=== PATIENT | female | born 1955 | race American Indian/Alaskan Native ===

== ENCOUNTER 2016-04-12 06:19 | Inpatient (IN) | payer BC ==
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
[2016-04-12 07:25] LABS: Basophils % (Auto) 0.4 % (0.0-1.8); Eosinophils % (Auto) 1.1 % (0.0-4.3); Hematocrit 41.1 % (30.3-42.9); Hemoglobin 13.8 gm/dl (10.1-14.3); Mean Corpuscular HGB Conc 34 % (30-34); Mean Corpuscular Hemoglobin 30 pg (28-32); Mean Corpuscular Volume 89 fl (79-97); Platelet Count 208 K/mm3 (140-440); Red Blood Count 4.61 M/mm3 (3.65-5.03); Red Cell Distribution Width 14.3 % (13.2-15.2); White Blood Count 9.9 K/mm3 (4.5-11.0)
[2016-04-12 07:31] LABS: Anion Gap 20 mmol/L; Blood Urea Nitrogen 24 mg/dL (7-17); Calcium 9.8 mg/dL (8.4-10.2); Carbon Dioxide 24 mmol/L (22-30); Glucose 193 mg/dL (65-100); Sodium 137 mmol/L (137-145)
[2016-04-12 07:36] LABS: INR 0.89 (0.87-1.13)
[2016-04-12 07:37] LABS: Partial Thromboplastin Time 31.5 Sec. (24.2-36.6)
--- NOTE | 2016-04-12 08:05 | XRay Report ---
AP CHEST: HISTORY: Hypertension AP view of the chest demonstrates a normal mediastinal and cardiac contour with clear lungs and normal bony and soft tissue structures. IMPRESSION: Unremarkable AP chest.
[2016-04-12] MEDS ORDERED: ASPIRIN PO ONE (08:12)
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
[2016-04-12] MEDS ORDERED: DULCOLAX PR PRN (10:00)
[2016-04-12] MEDS ORDERED: TYLENOL PO PRN (10:00)
[2016-04-12] MEDS ORDERED: MILK OF MAGNESIA PO PRN (10:00)
[2016-04-12] MEDS ORDERED: LOVENOX SUB-Q SCH (10:00)
[2016-04-12] MEDS ORDERED: HYDROCHLOROTHIAZID PO SCH (10:00)
[2016-04-12] MEDS ORDERED: ZOFRAN IV PRN (10:00)
[2016-04-12] MEDS ORDERED: TELMISARTAN PO SCH (10:00)
--- NOTE | 2016-04-12 10:09 | Admit Criteria Form ---
Admission Criteria Documentation: CARDIOLOGY GRG Clinical Indications for Admission to Inpatient Care ( Place 'X' for any and all applicable criteria): Hospital admission is needed for appropriate care of the patient because of ANY ONE of the following (1): [ ] I. Hemodynamic instability as indicated by ALL of the following (1)(2)(3) (4)(5) [ ]a) Vital signs or other findings not as expected for chronic patient condition or baseline [ ]b) Instability indicated by ANY ONE of the following: [ ]i) Hypotension [ ]ii) Symptomatic Tachycardia unresponsive to treatment ( e.g., analgesia, fluids, sedation as indicated) [ ]iii) Inadequate perfusion indicated by ANY ONE of the following: [ ] 1) Lactic acidosis (> 2 mmol/L) [ ] 2) New abnormal capillary refill (> 3 seconds) [ ] 3) Reduced urine output [ ] 4) New altered mental status [ ]iv) Orthostatic vital sign changes unresponsive to treatment (e.g., fluids) [ ]v) IV inotropic or vasopressor medication required to maintain adequate blood pressure or perfusion [ ] II. Severe heart failure as indicated by ANY ONE of the following(17)(18) [ ]a) Respiratory distress [ ]b) Hypotension [ ]c) Anasarca (refractory to outpatient therapy) [ ]d) Cardiac arrhythmias of immediate concern [ ]e) Myocardial ischemia [X] III. Cardiac arrhythmias or findings of immediate concern indicated by ANY ONE of the following (19)(20): [ ] a) Heart rhythms that are inherently dangerous or unstable indicated by ANY ONE of the following (21)(22)(23): [ ] i) Resuscitated ventricular fibrillation or cardiac arrest [ ] ii) Ventricular escape rhythm [ ] iii) Sustained ventricular tachycardia (30 seconds or more of ventricular rhythm at greater than 100 beats per minute) [ ] iv) Nonsustained ventricular tachycardia and ANY ONE of the following: [ ] 1) Suspected cardiac ischemia as cause or consequence of ventricular tachycardia [ ] 2) In setting of acute myocarditis [X] b) Unstable cardiac conduction defects indicated by ANY ONE of the following(23)(24)(25) [ ] i) Type II second-degree atrioventricular block [X]ii) Third-degree atrioventricular block [ ]iii) New-onset left bundle branch block with suspected myocardial ischemia [ ]c) Any heart rhythm and ANY ONE of the following (21)(22)(26)(27) (28) [ ] i) Continuous long-term ECG monitoring needed (e.g., initiation of drug requiring monitoring for more than 24 hours) [ ] ii) Patient has automatic implanted cardioverter defibrillator that is repeatedly firing, malfunctioning, or in need of immediate adjustment of settings beyond the scope of ambulatory or observation care [ ]d) Heart rhythms of concern due to ANY ONE of the following: [ ] i) Hypotension [ ] ii) Respiratory distress [ ] iii) Association with other significant symptoms (e.g., bradycardia with syncope or ongoing dizziness, supraventricular tachycardia with chest pain (14)(15)(17) [ ] IV. Monitoring for cardiac contusion beyond the scope of observation care needed [A](30)(31)(32) [ ] V. Surgical or device complication (e.g., valve replacement complication , pacemaker dysfunction) (35)(41)(44)(45)(46) [ ] . Inpatient palliative care needed. [B](49) Also use Inpatient Palliative Care Criteria [ ] VII. Nonbacterial thrombotic (marantic) endocarditis (36)(43)(47)(48) [ ] VIII. Cardiology condition, symptom, or finding for which emergency and observation care has failed or are not considered appropriate. [ ] IX. Acute valvular disease requiring inpatient as indicated by ANY ONE of the following (41) [ ]a) Acute valvular regurgitation (42) [ ]b) Noninfectious valvulitis (43) [ ]c) Obstructive valve thrombosis [ ]d) Paravalvular leak [ ]e) Other significant valvular disorder remaining after emergency or observation level of care (as appropriate) [ ]X. Pericardial disease requiring inpatient treatment as indicated by ANY ONE of the following (33)(34)(35)(36)(37) [ ]a) Suspected tamponade (38)(39)(40) [ ]b) Hemopericardium [ ]c) Other significant pericardial disorder remaining after emergency or observation level of care (as appropriate) [ ] XI. Cardiac ischemia beyond scope of emergency and observation care. [ ] XII. Hypertension requiring inpatient treatment as indicated by ANY ONE of the following (6)(7)(8) [ ]a) SBP greater than 220 mm Hg or DBP greater than 120 mmHg despite treatment [ ]b) SBP greater than 140 mm Hg or DBP greater than 100 mm Hg with evidence of acute end organ damage as indicated by ANY ONE of the following [ ] i) Altered mental status [ ] ii) Acute renal failure as indicated by new onset of ANY ONE of the following (9)(10)(11)(12)(13) [ ]1) 3-fold rise in serum creatinine from baseline [ ]2) Serum creatinine greater than 4 mg/dL ( 354 micromoles/L) with acute rise greater than 0.5 mg/dL (44.2 micromoles/L) [ ]3) Reduction of more than 75% in estimated glomerular filtration rate from baseline [ ]4) Estimated glomerular filtration rate less than 35 mL/min/1.73m2 (0.59 mL/sec/1.73m2) in child up to 18 years of age [ ]5) Cessation of urine output indicated by ALL of the following [ ]A. Adequate volume status [ ]B. Inadequate urine output as indicated by ANY ONE of the following [ ]a. Urine output less than 0.3 mL/kg/hr for 24 hours [ ]b. Anuria (urine output less than 0.1 mL/kg/hr) for 12 hours [ ] iii) Aortic dissection [ ] iv) Myocardial Ischemia [ ] v) Left ventricular heart failure [ ]vi) Retinal Hemorrhage [ ]vii) Other significant finding [ ]c) Hypertension in child requiring inpatient treatment as indicated by ALL of the following(14)(15)(16) [ ] i) Outpatient treatment not effective, not available, or not appropriate [ ]ii) SBP or DBP greater than 95th percentile for age [ ]iii) Evidence of acute end organ damage as indicated by ANY ONE of the following [ ]1) Altered mental status [ ]2) Acute renal failure as indicated by new onset of ANY ONE of the following(9)(10)(11)(12)(13) [ ]A. 3-fold rise in serum creatinine from baseline [ ]B. Serum creatinine greater than 4 mg/dL (354 micromoles/L) with acute rise greater than 0.5 mg/dL (44.2 micromoles/L) [ ]C. Reduction of more than 75% in estimated glomerular filtration rate from baseline [ ]D. Estimated glomerular filtration rate less than 35 mL/min/1.73m2 (0.59 mL/sec/1.73m2) in child up to 18 years of age [ ]E. Cessation of urine output indicated by ALL of the following [ ]a. Adequate volume status [ ]b. Inadequate urine output as indicated by ANY ONE of the following [ ]i) Urine output less than 0.3 mL/kg/hr for 24 hours [ ]ii) Anuria ( urine output less than 0.1 mL/kg/hr) for 12 hours [ ]3) Severe headache [ ]4) Visual disturbance [ ]5) Retinal hemorrhage [ ]6) Other significant finding [ ]XIII. Complications of transplanted heart indicated by ANY ONE of the following(61): [ ]a) Acute graft rejection requiring inpatient management (eg, intravenous immunosuppression)(62)(63) [ ]b) Acute graft heart failure indicated by ANY ONE of the following(64): [ ]i) Hemodynamic instability [ ]ii) Cardiac arrhythmias of immediate concern [ ]iii) Pulmonary edema that is very severe (eg, mechanical ventilation needed, imminent or likely, need for 100% oxygen to keep oxygen saturation above 90%) [ ]iv) Pulmonary edema that is persistent as indicated by ALL of the following: [ ]1) New need for oxygen therapy to keep oxygen saturation above 90% (or increased FiO2 need from baseline) [ ]2) Has not improved sufficiently with emergency department or observation care IV diuretics or other heart failure treatments[E] [ ]v) Altered mental status that is severe or persistent [ ]vi) Increased creatinine (new on laboratory test) with reduction of more than 50% in estimated glomerular filtration rate from baseline [ ]vii) Progressively (ongoing) rising creatinine (known from past laboratory test) with reduction of more than 25% in estimated glomerular filtration rate from baseline [ ]viii) Acute renal failure [ ]ix) Acute peripheral ischemia (eg, examination shows pulseless, cool, mottled, or cyanotic extremity) [ ]x) Pulmonary artery catheter monitoring needed [ ]xi) Other sign or symptom of heart failure requiring inpatient treatment (ie, too severe or not responsive to outpatient and observation care treatment) [ ]c) Infection requiring inpatient management (eg, Hemodynamic instability, need for intravenous antimicrobial treatment)(66)(67)(68)(69)(70) [ ]d) Cardiac allograft vasculopathy requiring inpatient management ( eg evidence of cardiac ischemia)(71) [ ]e) Other complication of transplanted heart (eg, stroke, severe pulmonary hypertension, severe valvular dysfunction) requiring inpatient management(72) The original [facility] content created by [facility] [employer] has been revised. The portions of the content which have been revised are identified through the use of italic text or in bold, and [facility] [place] has neither reviewed nor approved the modified material. All other unmodified content is copyright [facility] [employer]. Please see references footnoted in the original [facility] edition 2016 Admission Criteria Met: Yes
[2016-04-12] MEDS: HCTZ PO SCH (12:30)
[2016-04-12] MEDS: COZAAR PO SCH (12:30)
[2016-04-12] MEDS ORDERED: ATIVAN IV PRN (22:58)
[2016-04-13 05:29] LABS: Hematocrit 40.3 % (30.3-42.9); Hemoglobin 13.5 gm/dl (10.1-14.3); Mean Corpuscular HGB Conc 33 % (30-34); Mean Corpuscular Hemoglobin 30 pg (28-32); Mean Corpuscular Volume 89 fl (79-97); Platelet Count 188 K/mm3 (140-440); Red Blood Count 4.52 M/mm3 (3.65-5.03); Red Cell Distribution Width 14.1 % (13.2-15.2); White Blood Count 6.1 K/mm3 (4.5-11.0)
[2016-04-13 05:36] LABS: INR 0.93 (0.87-1.13)
[2016-04-13 05:53] LABS: Alanine Aminotransferase 14 units/L (7-56); Albumin/Globulin Ratio 1.5 %; Alkaline Phosphatase 60 units/L (35-129); Anion Gap 17 mmol/L; BUN/Creatinine Ratio 27.14; Bilirubin,Total 0.3 mg/dL (0.1-1.2); Blood Urea Nitrogen 19 mg/dL (7-17); Calcium 9.4 mg/dL (8.4-10.2); Carbon Dioxide 27 mmol/L (22-30); Chloride 101.3 mmol/L (98-107); Glucose 135 mg/dL (65-100); Sodium 141 mmol/L (137-145); Total Protein 6.7 g/dL (6.3-8.2)
[2016-04-13] MEDS: NACL 0.9% 1000 ML 1,000 ML IV SCH ×2 (06:26→21:25)
[2016-04-13 06:46] LABS: Basophils % (Manual) 0 % (0.0-1.8); Blastocytes % (Manual) 0 %; Diff Status Complete; RBC Morphology Normal
--- NOTE | 2016-04-13 08:31 | Progress Note ---
Assessment and Plan Intermittent complete heart block currently SR with bifaciscular block await echo findings awaiting PPM implantation today Hypertension Tobacco use Awaiting permanent pacemaker implantation this morning. The patient has been seen in conjunction with Dr. Pham who agrees with the assessment and plan of care. Subjective Date of service: 04/13/16 Principal diagnosis: intermittent complete heart block Interval history: The patient is resting in bed. Awaiting pacemaker implantation this morning. Objective Last Vital Signs Temp 98.3 F 04/13/16 04:00 Pulse 76 04/13/16 04:00 Resp 20 04/13/16 04:00 BP 105/58 04/13/16 04:00 Pulse Ox 96 04/13/16 04:00 - Physical Examination General: No Apparent Distress HEENT: Positive: PERRL, Normocephaly, Mucus Membranes Moist Neck: Positive: neck supple, trachea midline Cardiac: Positive: Reg Rate and Rhythm, S1/S2 Lungs: Positive: clear to auscultation Neuro: Positive: Grossly Intact Abdomen: Positive: Soft, Active Bowel Sounds. Negative: Tender Skin: Positive: Clear. Negative: Rash Extremities: Present: normal. Absent: edema - Labs and Meds Cardiac Enzymes 04/13/16 Range/Units 04:29 AST 17 (5-40) units/L Coagulation 04/13/16 Range/Units 04:29 PT 12.4 (12.2-14.9) Sec. INR 0.93 (0.87-1.13) APTT 32.0 (24.2-36.6) Sec. CBC 04/13/16 Range/Units 04:29 WBC 6.1 (4.5-11.0) K/mm3 RBC 4.52 (3.65-5.03) M/mm3 Hgb 13.5 (10.1-14.3) gm/dl Hct 40.3 (30.3-42.9) % Plt Count 188 (140-440) K/mm3 Comprehensive Metabolic Panel 04/13/16 Range/Units 04:29 Sodium 141 (137-145) mmol/L Potassium 4.0 (3.6-5.0) mmol/L Chloride 101.3 (98-107) mmol/L Carbon Dioxide 27 (22-30) mmol/L BUN 19 H (7-17) mg/dL Creatinine 0.7 (0.7-1.2) mg/dL Glucose 135 H (65-100) mg/dL Calcium 9.4 (8.4-10.2) mg/dL AST 17 (5-40) units/L ALT 14 (7-56) units/L Alkaline Phosphatase 60 (35-129) units/L Total Protein 6.7 (6.3-8.2) g/dL Albumin 4.0 (3.9-5) g/dL - Imaging and Cardiology EKG: image reviewed Echo: pending - Telemetry EKG Rhythm: Sinus Rhythm - EKG Sinus rhythms and dysrhythmias: sinus rhythm AV and intraventricular conduction: right bundle branch block, left anterior fascicular
[2016-04-13] MEDS ORDERED: NACL 0.9% 1 ML, VANCOMYCIN VIAL 1,000 MG IR ONE (09:25)
[2016-04-13] MEDS ORDERED: XYLOCAINE 1% 20 mL ONE (09:33)
[2016-04-13] MEDS ORDERED: ANCEF/STERILE WATER 2 GM/20 ML 2 GM/20 ML SYRINGE IV ONE (09:34)
[2016-04-13] MEDS: MARCAINE 0.5% 60 ML INFILTRATI ONE ×2 (09:50→10:30)
[2016-04-13] MEDS: NACL 0.9% 500 ML IR ONE ×2 (09:50→10:30)
[2016-04-13] MEDS ORDERED: ZOFRAN ONE (10:08)
[2016-04-13] MEDS: VERSED ONE ×8 (10:15→11:55)
[2016-04-13] MEDS: SUBLIMAZE ONE ×8 (10:15→11:55)
[2016-04-13] MEDS ORDERED: VANCOMYCIN VIAL 1,000 MG in NACL 0.9% 1,000 ML IRRIGATION ONE (10:30)
[2016-04-13] MEDS ORDERED: DILAUDID ONE ×3 (10:54→11:24)
[2016-04-13] MEDS: LOVENOX SUB-Q SCH (11:00)
[2016-04-13] MEDS: COZAAR PO SCH (11:00)
[2016-04-13] MEDS: HCTZ PO SCH (11:00)
--- NOTE | 2016-04-13 16:44 | XRay Report ---
AP chest x-ray. Findings: The heart and pulmonary vessels are normal. The lungs are clear. There is no pleural fluid. An ICD is noted. Impression: No acute findings.
--- NOTE | 2016-04-13 17:30 | Progress Note ---
Assessment and Plan Assessment and plan: Intermittent heart block - Pacemaker was placed this morning - Patient tolerated the procedure well - No chest pain Uncontrolled hypertension - Continue her home medications Disposition - Discharge tomorrow if cleared by cardiology and electrophysiology History Interval history: Patient was seen and evaluated after she came back from pacemaker placement. Patient tolerated the procedure well and didn't have any complaints. Hospitalist Physical - Physical exam Narrative exam: Not in cardiopulmonary distress. The patient appeared well nourished and normally developed. Vital signs as documented. Head exam is unremarkable. No scleral icterus . Neck is without jugular venous distension, thyromegaly, or carotid bruits. Lungs are clear to auscultation. Cardiac exam reveals regular rate and Rhythm. First and second heart sounds normal. No murmurs, rubs or gallops. Abdominal exam reveals normal bowel sounds, no masses, no organomegaly and no aortic enlargement. Extremities are nonedematous and both femoral and pedal pulses are normal. ENGRAVER: Alert and oriented 3. No focal weakness. - Constitutional Vitals: Temp Pulse Resp BP Pulse Ox 98.6 F 60 20 113/58 100 04/13/16 14:13 04/13/16 14:13 04/13/16 14:13 04/13/16 14:13 04/13/16 14:13 General appearance: Present: no acute distress Results - Labs CBC & Chem 7: 04/13/16 04:29 04/13/16 04:29 Labs: Laboratory Last Values WBC 6.1 K/mm3 (4.5-11.0) 04/13/16 04:29 RBC 4.52 M/mm3 (3.65-5.03) 04/13/16 04:29 Hgb 13.5 gm/dl (10.1-14.3) 04/13/16 04:29 Hct 40.3 % (30.3-42.9) 04/13/16 04:29 MCV 89 fl (79-97) 04/13/16 04:29 MCH 30 pg (28-32) 04/13/16 04:29 MCHC 33 % (30-34) 04/13/16 04:29 RDW 14.1 % (13.2-15.2) 04/13/16 04:29 Plt Count 188 K/mm3 (140-440) 04/13/16 04:29 Lymph % (Auto) 22.0 % (13.4-35.0) 04/12/16 06:53 [place] % (Auto) 8.6 % (0.0-7.3) H 04/12/16 06:53 Eos % (Auto) 1.1 % (0.0-4.3) 04/12/16 06:53 Baso % (Auto) 0.4 % (0.0-1.8) 04/12/16 06:53 Lymph # 2.2 K/mm3 (1.2-5.4) 04/12/16 06:53 [place] # 0.9 K/mm3 (0.0-0.8) H 04/12/16 06:53 Eos # 0.1 K/mm3 (0.0-0.4) 04/12/16 06:53 Baso # 0.0 K/mm3 (0.0-0.1) 04/12/16 06:53 Add Manual Diff Complete 04/13/16 04:29 Total Counted 100 04/13/16 04:29 Seg Neutrophils % Chief Strategy Officer 04/13/16 04:29 Seg Neuts % (Manual) 44.0 % (40.0-70.0) 04/13/16 04:29 Band Neutrophils % 0 % 04/13/16 04:29 Lymphocytes % (Manual) 46.0 % (13.4-35.0) H 04/13/16 04:29 Reactive Lymphs % (Man) 0 % 04/13/16 04:29 Monocytes % (Manual) 7.0 % (0.0-7.3) 04/13/16 04:29 Eosinophils % (Manual) 3.0 % (0.0-4.3) 04/13/16 04:29 Basophils % (Manual) 0 % (0.0-1.8) 04/13/16 04:29 Metamyelocytes % 0 % 04/13/16 04:29 Myelocytes % 0 % 04/13/16 04:29 Promyelocytes % 0 % 04/13/16 04:29 Blast Cells % 0 % 04/13/16 04:29 Nucleated RBC % Not Reportable 04/13/16 04:29 Seg Neutrophils # 6.7 K/mm3 (1.8-7.7) 04/12/16 06:53 Seg Neutrophils # Man 2.7 K/mm3 (1.8-7.7) 04/13/16 04:29 Band Neutrophils # 0.0 K/mm3 04/13/16 04:29 Lymphocytes # (Manual) 2.8 K/mm3 (1.2-5.4) 04/13/16 04:29 Abs React Lymphs (Man) 0.0 K/mm3 04/13/16 04:29 Monocytes # (Manual) 0.4 K/mm3 (0.0-0.8) 04/13/16 04:29 Eosinophils # (Manual) 0.2 K/mm3 (0.0-0.4) 04/13/16 04:29 Basophils # (Manual) 0.0 K/mm3 (0.0-0.1) 04/13/16 04:29 Metamyelocytes # 0.0 K/mm3 04/13/16 04:29 Myelocytes # 0.0 K/mm3 04/13/16 04:29 Promyelocytes # 0.0 K/mm3 04/13/16 04:29 Blast Cells # 0.0 K/mm3 04/13/16 04:29 WBC Morphology Not Reportable 04/13/16 04:29 Hypersegmented Neuts Not Reportable 04/13/16 04:29 Hyposegmented Neuts Not Reportable 04/13/16 04:29 Hypogranular Neuts Not Reportable 04/13/16 04:29 Smudge Cells Not Reportable 04/13/16 04:29 Toxic Granulation Not Reportable 04/13/16 04:29 Toxic Vacuolation Not Reportable 04/13/16 04:29 Dohle Bodies Not Reportable 04/13/16 04:29 Pelger-Huet Anomaly Not Reportable 04/13/16 04:29 Eryn Rods Not Reportable 04/13/16 04:29 Platelet Estimate Appears normal 04/13/16 04:29 Clumped Platelets Not Reportable 04/13/16 04:29 Plt Clumps, EDTA Not Reportable 04/13/16 04:29 Large Platelets Not Reportable 04/13/16 04:29 Giant Platelets Not Reportable 04/13/16 04:29 Platelet Satelliting Not Reportable 04/13/16 04:29 Plt Morphology Comment Not Reportable 04/13/16 04:29 RBC Morphology Normal 04/13/16 04:29 Dimorphic RBCs Not Reportable 04/13/16 04:29 Polychromasia Not Reportable 04/13/16 04:29 Hypochromasia Not Reportable 04/13/16 04:29 Poikilocytosis Not Reportable 04/13/16 04:29 Anisocytosis Not Reportable 04/13/16 04:29 Microcytosis Not Reportable 04/13/16 04:29 Macrocytosis Not Reportable 04/13/16 04:29 Spherocytes Not Reportable 04/13/16 04:29 Pappenheimer Bodies Not Reportable 04/13/16 04:29 Sickle Cells Not Reportable 04/13/16 04:29 Target Cells Not Reportable 04/13/16 04:29 Tear Drop Cells Not Reportable 04/13/16 04:29 Ovalocytes Not Reportable 04/13/16 04:29 Helmet Cells Not Reportable 04/13/16 04:29 [place] Bodies Not Reportable 04/13/16 04:29 [place] Rings Not Reportable 04/13/16 04:29 Sheri Cells Not Reportable 04/13/16 04:29 Bite Cells Not Reportable 04/13/16 04:29 Crenated Cell Not Reportable 04/13/16 04:29 Elliptocytes Not Reportable 04/13/16 04:29 Acanthocytes (Spur) Not Reportable 04/13/16 04:29 Rouleaux Not Reportable 04/13/16 04:29 Hemoglobin C Crystals Not Reportable 04/13/16 04:29 Schistocytes Not Reportable 04/13/16 04:29 Malaria parasites Not Reportable 04/13/16 04:29 [place] Bodies Not Reportable 04/13/16 04:29 Hem Pathologist Commnt No 04/13/16 04:29 PT 12.4 Sec. (12.2-14.9) 04/13/16 04:29 INR 0.93 (0.87-1.13) 04/13/16 04:29 APTT 32.0 Sec. (24.2-36.6) 04/13/16 04:29 Sodium 141 mmol/L (137-145) 04/13/16 04:29 Potassium 4.0 mmol/L (3.6-5.0) 04/13/16 04:29 Chloride 101.3 mmol/L (98-107) 04/13/16 04:29 Carbon Dioxide 27 mmol/L (22-30) 04/13/16 04:29 Anion Gap 17 mmol/L 04/13/16 04:29 BUN 19 mg/dL (7-17) H 04/13/16 04:29 Creatinine 0.7 mg/dL (0.7-1.2) 04/13/16 04:29 Estimated GFR > 60 ml/min 04/13/16 04:29 BUN/Creatinine Ratio 27.14 % 04/13/16 04:29 Glucose 135 mg/dL (65-100) H 04/13/16 04:29 Calcium 9.4 mg/dL (8.4-10.2) 04/13/16 04:29 Total Bilirubin 0.3 mg/dL (0.1-1.2) 04/13/16 04:29 AST 17 units/L (5-40) 04/13/16 04:29 ALT 14 units/L (7-56) 04/13/16 04:29 Alkaline Phosphatase 60 units/L (35-129) 04/13/16 04:29 Troponin T < 0.010 ng/mL (0.00-0.029) 04/12/16 13:55 Total Protein 6.7 g/dL (6.3-8.2) 04/13/16 04:29 Albumin 4.0 g/dL (3.9-5) 04/13/16 04:29 Albumin/Globulin Ratio 1.5 % 04/13/16 04:29
[2016-04-14 06:33] LABS: Basophils % (Auto) 0.5 % (0.0-1.8); Eosinophils % (Auto) 2.6 % (0.0-4.3); Hematocrit 37.7 % (30.3-42.9); Hemoglobin 12.6 gm/dl (10.1-14.3); Mean Corpuscular HGB Conc 34 % (30-34); Mean Corpuscular Hemoglobin 30 pg (28-32); Mean Corpuscular Volume 89 fl (79-97); Platelet Count 178 K/mm3 (140-440); Red Blood Count 4.25 M/mm3 (3.65-5.03); Red Cell Distribution Width 13.9 % (13.2-15.2); White Blood Count 7.5 K/mm3 (4.5-11.0)
[2016-04-14 06:53] LABS: Anion Gap 17 mmol/L; Blood Urea Nitrogen 19 mg/dL (7-17); Calcium 9.1 mg/dL (8.4-10.2); Carbon Dioxide 27 mmol/L (22-30); Glucose 121 mg/dL (65-100); Potassium 4.8 mmol/L (3.6-5.0); Sodium 143 mmol/L (137-145)
[2016-04-14] MEDS: NACL 0.9% 1000 ML 1,000 ML IV SCH (07:39)
[2016-04-14] MEDS: PERCOCET 5/325 PO PRN ×2 (07:41→11:34)
[2016-04-14] MEDS: LOVENOX SUB-Q SCH (10:18)
[2016-04-14 10:19] VITALS: BP 159/72
[2016-04-14] MEDS: COZAAR PO SCH (10:19)
[2016-04-14] MEDS: HCTZ PO SCH (10:19)
--- NOTE | 2016-04-14 10:40 | Discharge Summary ---
Providers - Providers Date of Admission: 04/12/16 09:42 Date of discharge: 04/14/16 Attending physician: BETSY BENTLEY MD 04/12/16 09:53 Consult to Physician [CONS] Routine Consulting Provider: MARYCARMEN ARCINIEGA Reason For Exam: 3rd Degree Heart Block Place consult to:: Dr. Arciniega Notified:: Evy SINHA Phone number called:: Was contact made?: Yes If yes, spoke with:: [facility] Time called:: 08:13 Primary care physician: SEAM STEAMER Hospitalization Reason for admission: Heart block Condition: Fair Procedures: Pacemaker placement Hospital course: 60-year-old female with medical history significant for hypertension was brought by EMS for complete heart block. Patient was admitted to the floor cardiology was consulted and pacemaker was placed and discharged home in stable condition. Disposition: DISCHARGED TO HOME OR SELFCARE Time spent for discharge: 31 minutes - Discharge Diagnoses (1) Complete heart block, transient Status: Acute (2) Pre-syncope Status: Acute Core Measure Documentation - Palliative Care Palliative Care/ Comfort Measures: Not Applicable - Core Measures Any of the following diagnoses?: none Exam - Physical Exam Narrative exam: Not in cardiopulmonary distress. The patient appeared well nourished and normally developed. Vital signs as documented. Head exam is unremarkable. No scleral icterus . Neck is without jugular venous distension, thyromegaly, or carotid bruits. Lungs are clear to auscultation. Cardiac exam reveals regular rate and Rhythm. First and second heart sounds normal. No murmurs, rubs or gallops. Abdominal exam reveals normal bowel sounds, no masses, no organomegaly and no aortic enlargement. Extremities are nonedematous and both femoral and pedal pulses are normal. TRAFFIC SAFETY ADMINISTRATOR: Alert and oriented 3. No focal weakness. - Constitutional Vitals: Temp Pulse Resp BP Pulse Ox 97.6 F 60 20 159/72 97 04/14/16 05:36 04/14/16 05:36 04/14/16 05:36 04/14/16 10:19 04/14/16 05:36 Plan Activity: no restrictions Weight Bearing Status: Full Weight Bearing Diet: low cholesterol, low salt Follow up with: PRIMARY CAREMD [Primary Care Provider] - 7 Days Prescriptions: HYDROcodone/APAP 5-325 [[place] 5/325] 1 each PO Q6HR PRN #12 tablet PRN Reason: Pain
--- NOTE | 2016-04-14 11:00 | Progress Note ---
Assessment and Plan Intermittent complete heart block s/p PPM implantation by Dr. Pham on 04/13-->device interrogation today revealed normal function Echo 03/2016: mild LVH, EF 55-60%, impaired relaxation, mild MR, mild TR Hypertension stable Tobacco use Stable cardiac status. Patient may be discharged from a cardiac standpoint. Follow up appointment for an incision check in the [place] office on 04/26/16 at 1:00pm. The patient has been seen in conjunction with Dr. Pham who agrees with the assessment and plan of care. Subjective Date of service: 04/14/16 Principal diagnosis: intermittent complete heart block Interval history: The patient is resting in bed. No new complaints. S/p pacemaker implantation yesterday. Objective Last Vital Signs Temp 97.6 F 04/14/16 05:36 Pulse 60 04/14/16 05:36 Resp 20 04/14/16 05:36 BP 159/72 04/14/16 10:19 Pulse Ox 97 04/14/16 05:36 - Physical Examination General: No Apparent Distress HEENT: Positive: PERRL, Normocephaly, Mucus Membranes Moist Neck: Positive: neck supple, trachea midline Cardiac: Positive: Reg Rate and Rhythm, S1/S2 Lungs: Positive: clear to auscultation Neuro: Positive: Grossly Intact Abdomen: Positive: Soft, Active Bowel Sounds. Negative: Tender Skin: Positive: Clear, Other (left chest pacemaker site-no hematoma or bleeding/ oozing noted). Negative: Rash Extremities: Present: normal. Absent: edema - Labs and Meds CBC 04/14/16 Range/Units 05:34 WBC 7.5 (4.5-11.0) K/mm3 RBC 4.25 (3.65-5.03) M/mm3 Hgb 12.6 (10.1-14.3) gm/dl Hct 37.7 (30.3-42.9) % Plt Count 178 (140-440) K/mm3 Lymph # 2.3 (1.2-5.4) K/mm3 [place] # 0.8 (0.0-0.8) K/mm3 Eos # 0.2 (0.0-0.4) K/mm3 Baso # 0.0 (0.0-0.1) K/mm3 Comprehensive Metabolic Panel 04/14/16 Range/Units 05:34 Sodium 143 (137-145) mmol/L Potassium 4.8 (3.6-5.0) mmol/L Chloride 104.0 (98-107) mmol/L Carbon Dioxide 27 (22-30) mmol/L BUN 19 H (7-17) mg/dL Creatinine 0.5 L (0.7-1.2) mg/dL Glucose 121 H (65-100) mg/dL Calcium 9.1 (8.4-10.2) mg/dL - Imaging and Cardiology EKG: image reviewed Echo: report reviewed (03/2016; mild LVH, EF 55-60%, impaired relaxation, mild MR , mild TR) - Telemetry EKG Rhythm: Sinus Rhythm - EKG Sinus rhythms and dysrhythmias: sinus rhythm AV and intraventricular conduction: right bundle branch block, left anterior fascicular
== END 2016-04-14 12:00 | disposition home or self-care (01) | DRG 244 ==
LOC: ED 06:19 → 4A 09:42
PROVIDERS: ADMIT Internal Medicine; ATTEND Internal Medicine
PROC: 0JH606Z Insertion of Pacemaker, Dual Chamber into Chest Subcutaneous Tissue and Fascia, Open Approach (ICD-10-PCS; principal; 2016-04-13)
PROC: 02H63JZ Insertion of Pacemaker Lead into Right Atrium, Percutaneous Approach (ICD-10-PCS; 2016-04-13)
PROC: 02HK3JZ Insertion of Pacemaker Lead into Right Ventricle, Percutaneous Approach (ICD-10-PCS; 2016-04-13)
DX: I44.2 Atrioventricular block, complete (principal); R00.1 Bradycardia, unspecified; I10 Essential (primary) hypertension; F17.210 Nicotine dependence, cigarettes, uncomplicated; I45.2 Bifascicular block; I45.10 Unspecified right bundle-branch block; Z98.890 Other specified postprocedural states
CPT/HCPCS: 33208; 36415; 71010; 80048; 80053; 84484; 85007; 85025; 85610; 85730; 93005; 93010; 93306; 99285; 99406; C1779; C1785; C1892; J0690; J1170; J1650; J2060; J2250; J2405; J3010; J3370; J7030; Q9967

== ENCOUNTER 2018-12-29 08:37 | Emergency (ER) | payer BC ==
[2018-12-29] MEDS ORDERED: IPRATROPIUM 0.02% NEBU 2.5 ML IH ONE (09:07)
[2018-12-29] MEDS ORDERED: methylPREDNISolone Sod Succinate 125 MG/2 ML INJ IV ONE (09:07)
[2018-12-29] MEDS ORDERED: ALBUTEROL 2.5 MG/3 ML NEBU IH ONE (09:07)
[2018-12-29] MEDS ORDERED: MAGNESIUM SULFATE 2 GM/50 ML BAG IV ONE (09:07)
[2018-12-29 09:18] LABS: Basophils % (Auto) 0.6 % (0.0-1.8); Eosinophils # (Auto) 0.1 K/mm3 (0.0-0.4); Eosinophils % (Auto) 1.9 % (0.0-4.3); Hematocrit 45.8 % (30.3-42.9); Hemoglobin 15.4 gm/dl (10.1-14.3); Lymphocytes # (Auto) 1.7 K/mm3 (1.2-5.4); Lymphocytes % (Auto) 25.8 % (13.4-35.0); Mean Corpuscular HGB Conc 34 % (30-34); Mean Corpuscular Volume 91 fl (79-97); Monocytes # (Auto) 0.6 K/mm3 (0.0-0.8); Platelet Count 194 K/mm3 (140-440); Red Blood Count 5.04 M/mm3 (3.65-5.03); Red Cell Distribution Width 13.8 % (13.2-15.2)
--- NOTE | 2018-12-29 09:24 | Emergency Department Report ---
<EDEN CHIANG - Last Filed: 01/01/19 17:52> ED Shortness of Breath HPI - General Chief Complaint: Dyspnea/Respdistress Stated Complaint: SOB Time Seen by Provider: 12/29/18 08:58 Source: patient Mode of arrival: Ambulatory Limitations: No Limitations - History of Present Illness Initial Comments: Patient is a 63-year-old female presents emergency room with complaints of shortness of breath that began yesterday. she has associated productive cough and congestion. Patient states that she just flew in from [place] yesterday. she states that her oxygen saturation was 91% on room air and she does not use oxygen at home. she denies any leg swelling, chest pain, hemoptysis. Patient has a past medical history of a pacemaker placed in 2017, hypertension, asthma. she states that she used nebulizer treatments at home but continued to feel worsening shortness of breath. she denies any history of NV or PE/DVT or any family history of DVT/PE - Related Data Home Medications Medication Instructions Recorded Confirmed Last Taken Telmisartan/Hydrochlorothiazid 1 each PO QDAY 04/12/16 01/01/19 Unknown [Micardis Hct 80-25 mg] Previous Rx's Medication Instructions Recorded Last Taken Type Albuterol Sulfate [Albuterol 0.63% 0.63 mg IH TID PRN #1 box 12/29/18 Unknown Rx NEBS] ALPRAZolam [Xanax TAB] 0.25 mg PO BID PRN #12 tab 01/03/19 Unknown Rx Albuterol Sulfate [Proair 90 mcg IH Q6HR 30 Days aer.[email or web address] 01/03/19 Unknown Rx Respiclick] Azithromycin [Zithromax TAB] 250 mg PO QDAY 5 Days #6 tablet 01/03/19 Unknown Rx predniSONE [Deltasone] 20 mg PO QDAY 9 Days #18 tab 01/03/19 Unknown Rx metFORMIN [Glucophage] 500 mg PO BID #30 tablet 01/04/19 Unknown Rx Allergies Allergy/AdvReac Type Severity Reaction Status Date / Time codeine Allergy Vomiting Verified 12/29/18 08:45 ED Review of Systems Comment: All other systems reviewed and negative ED Past Medical Hx - Past Medical History Hx Hypertension: Yes Hx Congestive Heart Failure: No Hx Diabetes: No Hx Asthma: No Hx COPD: No - Surgical History Additional Surgical History: - Social History Smoking Status: Current Every Day Smoker Substance Use Type: Alcohol - Medications Home Medications: Home Medications Medication Instructions Recorded Confirmed Last Taken Type Telmisartan/Hydrochlorothiazid 1 each PO QDAY 04/12/16 01/01/19 Unknown History [Micardis Hct 80-25 mg] Albuterol Sulfate [Albuterol 0.63% 0.63 mg IH TID PRN #1 box 12/29/18 01/01/19 Unknown Rx NEBS] ALPRAZolam [Xanax TAB] 0.25 mg PO BID PRN #12 tab 01/03/19 Unknown Rx Albuterol Sulfate [Proair 90 mcg IH Q6HR 30 Days aer.pow.ba 01/03/19 Unknown Rx Respiclick] Azithromycin [Zithromax TAB] 250 mg PO QDAY 5 Days #6 tablet 01/03/19 Unknown Rx predniSONE [Deltasone] 20 mg PO QDAY 9 Days #18 tab 01/03/19 Unknown Rx metFORMIN [Glucophage] 500 mg PO BID #30 tablet 01/04/19 Unknown Rx ED Physical Exam - General Limitations: No Limitations General appearance: alert, in no apparent distress - Head Head exam: Present: atraumatic, normocephalic - Eye Eye exam: Present: normal appearance - ENT ENT exam: Present: mucous membranes moist - Respiratory Respiratory exam: Present: respiratory distress (moderate), wheezes (throughout bilaterally), rhonchi (throughout bilaterally), prolonged expiratory. Absent: rales, stridor, chest wall tenderness, accessory muscle use, decreased breath sounds - Cardiovascular Cardiovascular Exam: Present: other (paced) - Extremities Exam Extremities exam: Absent: pedal edema - Neurological Exam Neurological exam: Present: alert, oriented X3 - Psychiatric Psychiatric exam: Present: normal affect, normal mood - Skin Skin exam: Present: warm, dry, intact ED Medical Decision Making - Lab Data Result diagrams: 12/29/18 09:03 12/29/18 09:03 Lab Results 12/29/18 12/29/18 12/29/18 Range/Units 09:03 09:03 09:03 WBC 6.4 (4.5-11.0) K/mm3 RBC 5.04 H (3.65-5.03) M/mm3 Hgb 15.4 H (10.1-14.3) gm/dl Hct 45.8 H (30.3-42.9) % MCV 91 (79-97) fl MCH 30 (28-32) pg MCHC 34 (30-34) % RDW 13.8 (13.2-15.2) % Plt Count 194 (140-440) K/mm3 Lymph % (Auto) 25.8 (13.4-35.0) % Geary % (Auto) 10.0 H (0.0-7.3) % Eos % (Auto) 1.9 (0.0-4.3) % Baso % (Auto) 0.6 (0.0-1.8) % Lymph # 1.7 (1.2-5.4) K/mm3 Geary # 0.6 (0.0-0.8) K/mm3 Eos # 0.1 (0.0-0.4) K/mm3 Baso # 0.0 (0.0-0.1) K/mm3 Seg Neutrophils % 61.7 (40.0-70.0) % Seg Neutrophils # 4.0 (1.8-7.7) K/mm3 PT 11.8 L (12.2-14.9) Sec. INR 0.87 (0.87-1.13) APTT 29.2 (24.2-36.6) Sec. D-Dimer 143.55 (0-234) ng/mlDDU Sodium 140 (137-145) mmol/L Potassium 4.2 (3.6-5.0) mmol/L Chloride 98.0 (98-107) mmol/L Carbon Dioxide 27 (22-30) mmol/L Anion Gap 19 mmol/L BUN 11 (7-17) mg/dL Creatinine 0.7 (0.7-1.2) mg/dL Estimated GFR > 60 ml/min BUN/Creatinine Ratio 16 % Glucose 241 H (65-100) mg/dL Calcium 10.3 H (8.4-10.2) mg/dL Total Bilirubin 0.40 (0.1-1.2) mg/dL AST 23 (5-40) units/L ALT 13 (7-56) units/L Alkaline Phosphatase 93 (35-129) units/L Troponin T < 0.010 (0.00-0.029) ng/mL Total Protein 7.8 (6.3-8.2) g/dL Albumin 4.6 (3.9-5) g/dL Albumin/Globulin Ratio 1.4 % 12/29/18 Range/Units 11:55 WBC (4.5-11.0) K/mm3 RBC (3.65-5.03) M/mm3 Hgb (10.1-14.3) gm/dl Hct (30.3-42.9) % MCV (79-97) fl MCH (28-32) pg MCHC (30-34) % RDW (13.2-15.2) % Plt Count (140-440) K/mm3 Lymph % (Auto) (13.4-35.0) % Geary % (Auto) (0.0-7.3) % Eos % (Auto) (0.0-4.3) % Baso % (Auto) (0.0-1.8) % Lymph # (1.2-5.4) K/mm3 Geary # (0.0-0.8) K/mm3 Eos # (0.0-0.4) K/mm3 Baso # (0.0-0.1) K/mm3 Seg Neutrophils % (40.0-70.0) % Seg Neutrophils # (1.8-7.7) K/mm3 PT (12.2-14.9) Sec. INR (0.87-1.13) APTT (24.2-36.6) Sec. D-Dimer (0-234) ng/mlDDU Sodium (137-145) mmol/L Potassium (3.6-5.0) mmol/L Chloride (98-107) mmol/L Carbon Dioxide (22-30) mmol/L Anion Gap mmol/L BUN (7-17) mg/dL Creatinine (0.7-1.2) mg/dL Estimated GFR ml/min BUN/Creatinine Ratio % Glucose (65-100) mg/dL Calcium (8.4-10.2) mg/dL Total Bilirubin (0.1-1.2) mg/dL AST (5-40) units/L ALT (7-56) units/L Alkaline Phosphatase (35-129) units/L Troponin T < 0.010 (0.00-0.029) ng/mL Total Protein (6.3-8.2) g/dL Albumin (3.9-5) g/dL Albumin/Globulin Ratio % - EKG Data 12/29/18 09:51 rate 82 atrial sensed ventricular paced rhythm no STEMI - Radiology Data Radiology results: report reviewed CHEST 1 VIEW INDICATION: Shortness of breath. COMPARISON: 04/13/2016 FINDINGS: Support devices: None. Heart: Within normal limits. 2-lead cardiac pacemaker device is in place and unchanged. Lungs/Pleura: No acute air space or interstitial disease. The lungs are mildly hyperinflated. Additional findings: None. IMPRESSION: No acute findings. Mildly hyperinflated lungs. Signer Name: Clarence Zamora Jr, MD Signed: 12/29/2018 9:38 AM Workstation Name: [id number] Transcribed By: TTR Dictated By: CLARENCE ZAMORA JR, MD Electronically Authenticated By: CLARENCE ZAMORA JR, MD Signed Date/Time: 12/29/18937 DD/ 7 TD/TT: CTA CHEST WITH CONTRAST INDICATION : dyspnea. TECHNIQUE: Axial imaging performed through the chest, with contrast bolus timing set to maximize opacification of the pulmonary arteries. Sagittal and coronal reformatted images. 3-plane MIP reformatted images were obtained. All CT scans at this location are performed using CT dose reduction for ALARA by means of automated exposure control. 100 mL of intravenous contrast administered. COMPARISON: AP chest performed the same day FINDINGS: Bolus: Contrast bolus timing is adequate. PTE: No filling defect is present to suggest PTE. Mediastinum: Borderline to mild cardiomegaly is evident. 2-lead pacemaker device is in position. There are minimal calcific plaques in the thoracic aorta. No dissection or aneurysm. No pathologic mediastinal adenopathy. Lungs: Lungs are clear. Bones: Degenerative changes in the spine with nothing acute. Upper abdomen: Limited imaging of the upper abdomen shows nothing acute. IMPRESSION: No evidence for pulmonary embolus. Borderline to mild cardiomegaly. Minimal emphysematous changes. Signer Name: Clarence Zamora Jr, MD Signed: 12/29/2018 2:24 PM Workstation Name: [id number] Transcribed By: TTR Dictated By: CLARENCE ZAMORA JR, MD Electronically Authenticated By: CLARENCE ZAMORA JR, MD Signed Date/Time: 12/29/181423 DD/ 142 TD/TT: - Medical Decision Making Patient is a 63-year-old female presents emergency room with complaints of shortness of breath that began yesterday. she has associated productive cough and congestion. Patient states that she just flew in from [place] yesterday. she states that her oxygen saturation was 91% on room air and she does not use oxygen at home. she denies any leg swelling, chest pain, hemoptysis. Patient has a past medical history of a pacemaker placed in 2017, hypertension, asthma. she states that she used nebulizer treatments at home but continued to feel worsening shortness of breath. she denies any history of NV or PE/DVT or any family history of DVT/PE. initial vitals with mild tachycardia, tachypnea and oxygen saturation of 92%. on exam: wheezing, rhonchi bilaterally. pt given neb txs, steroids, magnesium. labs are stable. sugar is mildly elevated advised pt to see her PCP and have blood work completed. CXR: No acute findings. Mildly hyperinflated lungs. discussed case with Dr. Edwards who recommended a CTA chest. CTA chest: No evidence for pulmonary embolus. Borderline to mild cardiomegaly. Minimal emphysematous changes. after medications pt is feeling much better, breath sounds have significant improved and pt has improved air movement. pt was walked around the ED and maintained oxygen saturation of 92% on RA. pt states she has not had an asthma exacerbation since the 1980s. pt given prescriptions for neb solution, azithromycin, long steroid taper. she states that she has a neb mechine but no solution, she states she does have an inhaler. advised pt to please take medication as prescribed. please use your nebulizer treatments 3 times a day for the next week. Please follow-up with your primary care doctor in the next 2 days for reexamination. Return to the emergency room immediately for any new or worsening symptoms or if your shortness of breath is not improving - Differential Diagnosis asthma, COPD, bronchitis, PE, URI, viral syndrome ED Disposition Clinical Impression: Asthma exacerbation Qualifiers: Asthma severity: unspecified severity Asthma persistence: unspecified Qualified Code(s): J45.901 - Unspecified asthma with (acute) exacerbation Disposition: TO HOME OR SELFCARE Is pt being admited?: No Does the pt Need Aspirin: No Condition: Stable Instructions: Asthma (ED), Acute Bronchitis (ED) Additional Instructions: Please take medication as prescribed. please use your nebulizer treatments 3 times a day for the next week. Please follow-up with your primary care doctor in the next 2 days for reexamination. Return to the emergency room immediately for any new or worsening symptoms or if your shortness of breath is not im proving Prescriptions: Albuterol Sulfate [Albuterol 0.63% NEBS] 0.63 mg IH TID PRN #1 box PRN Reason: Wheezing Referrals: PRIMARY CARE,MD [Primary Care Provider] - 3-5 Days your, primary care doctor [Other] - 3-5 Days Time of Disposition: 15:16 Print Language: GUATEMALAN <FRACISCO EDWARDS P - Last Filed: 01/13/19 02:56> ED Review of Systems ROS: Stated complaint: SOB Other details as noted in HPI ED Course Vital Signs 12/29/18 12/29/18 12/29/18 08:45 09:18 09:32 Temperature 97.5 F L Pulse Rate 100 H 87 75 Respiratory 28 H 18 17 Rate Blood Pressure 137/84 Blood Pressure 133/74 [Right] O2 Sat by Pulse 93 93 Oximetry 12/29/18 12/29/18 12/29/18 09:33 09:46 10:00 Temperature Pulse Rate 75 71 Respiratory 17 25 H 14 Rate Blood Pressure 133/74 127/80 Blood Pressure [Right] O2 Sat by Pulse 97 98 98 Oximetry 12/29/18 12/29/18 12/29/18 10:15 10:30 10:45 Temperature Pulse Rate 78 78 84 Respiratory 19 23 24 Rate Blood Pressure 142/70 142/70 155/84 Blood Pressure [Right] O2 Sat by Pulse 96 100 Oximetry 12/29/18 12/29/18 12/29/18 11:00 11:16 11:30 Temperature Pulse Rate 98 H 91 H 83 Respiratory 27 H 26 H 22 Rate Blood Pressure 155/84 153/66 155/74 Blood Pressure [Right] O2 Sat by Pulse 95 94 100 Oximetry 12/29/18 12/29/18 12/29/18 11:48 12:00 12:15 Temperature Pulse Rate 91 H 141 H 82 Respiratory 22 28 H 23 Rate Blood Pressure 138/72 135/77 144/76 Blood Pressure [Right] O2 Sat by Pulse 95 95 Oximetry 12/29/18 12/29/18 12/29/18 12:30 12:45 13:00 Temperature Pulse Rate 90 93 H 88 Respiratory 19 19 19 Rate Blood Pressure 137/70 131/71 138/71 Blood Pressure [Right] O2 Sat by Pulse 95 93 93 Oximetry 12/29/18 12/29/18 12/29/18 13:15 13:30 13:45 Temperature Pulse Rate 88 94 H 79 Respiratory 18 18 19 Rate Blood Pressure 140/72 135/75 125/60 Blood Pressure [Right] O2 Sat by Pulse 95 93 92 Oximetry 12/29/18 14:08 Temperature Pulse Rate Respiratory Rate Blood Pressure 125/60 Blood Pressure [Right] O2 Sat by Pulse Oximetry ED Medical Decision Making - Lab Data Result diagrams: 12/29/18 09:03 12/29/18 09:03 - Medical Decision Making Attestation: Available for consultation Critical care attestation.: If time is entered above; I have spent that time in minutes in the direct care of this critically ill patient, excluding procedure time. ED Disposition Is pt being admited?: No
[2018-12-29 09:31] LABS: INR 0.87 (0.87-1.13)
[2018-12-29 09:32] LABS: Partial Thromboplastin Time 29.2 Sec. (24.2-36.6)
--- NOTE | 2018-12-29 09:43 | XRay Report ---
CHEST 1 VIEW INDICATION: Shortness of breath. COMPARISON: 04/13/2016 FINDINGS: Support devices: None. Heart: Within normal limits. 2-lead cardiac pacemaker device is in place and unchanged. Lungs/Pleura: No acute air space or interstitial disease. The lungs are mildly hyperinflated. Additional findings: None. IMPRESSION: No acute findings. Mildly hyperinflated lungs. Signer Name: Clarence Zamora Jr, MD Signed: 12/29/2018 9:38 AM Workstation Name: [id number]
[2018-12-29 10:06] LABS: Alanine Aminotransferase 13 units/L (7-56); Albumin 4.6 g/dL (3.9-5); BUN/Creatinine Ratio 16; Blood Urea Nitrogen 11 mg/dL (7-17); Calcium 10.3 mg/dL (8.4-10.2); Hemolysis Index 8
[2018-12-29 14:11] VITALS: BP 125/60
--- NOTE | 2018-12-29 14:29 | Cat Scan Report ---
CTA CHEST WITH CONTRAST INDICATION : dyspnea. TECHNIQUE: Axial imaging performed through the chest, with contrast bolus timing set to maximize opa cification of the pulmonary arteries. Sagittal and coronal reformatted images. 3-plane MIP reformatte d images were obtained. All CT scans at this location are performed using CT dose reduction for ALAR A by means of automated exposure control. 100 mL of intravenous contrast administered. COMPARISON: AP chest performed the same day FINDINGS: Bolus: Contrast bolus timing is adequate. PTE: No filling defect is present to suggest PTE. Mediastinum: Borderline to mild cardiomegaly is evident. 2-lead pacemaker device is in position. The re are minimal calcific plaques in the thoracic aorta. No dissection or aneurysm. No pathologic medi astinal adenopathy. Lungs: Lungs are clear. Bones: Degenerative changes in the spine with nothing acute. Upper abdomen: Limited imaging of the upper abdomen shows nothing acute. IMPRESSION: No evidence for pulmonary embolus. Borderline to mild cardiomegaly. Minimal emphysematous changes. Signer Name: Clarence Zamora Jr, MD Signed: 12/29/2018 2:24 PM Workstation Name: [id number]
== END 2018-12-29 15:29 | disposition home or self-care (01) ==
LOC: ED 08:37
DX: J45.909 Unspecified asthma, uncomplicated (principal); J20.9 Acute bronchitis, unspecified; I10 Essential (primary) hypertension; F17.200 Nicotine dependence, unspecified, uncomplicated; Z88.5 Allergy status to narcotic agent; Z79.899 Other long term (current) drug therapy
CPT/HCPCS: 36415; 71045; 71275; 80053; 84484; 85025; 85379; 85610; 85730; 93005; 93010; 94640; 96365; 96375; 99285; J2930; J3475; Q9967

== ENCOUNTER 2019-01-01 11:36 | Inpatient (IN) | payer BC ==
--- NOTE | 2019-01-01 11:42 | Emergency Department Report ---
Blank Doc - Documentation Documentation: 63-year-old female that presents with MAHIN and wheezing. This initial assessment/diagnostic orders/clinical plan/treatment(s) is/are subject to change based on patient's health status, clinical progression and re- assessment by fellow clinical providers in the ED. Further treatment and workup at subsequent clinical providers discretion. Patient/guardians urged not to elope from the ED as their condition may be serious if not clinically assessed and managed. Initial orders include: 1- Patient sent to [facility] for further evaluation and treatment 2- breathing treatment/steroids
[2019-01-01] MEDS ORDERED: IPRATROPIUM 0.02% NEBU 2.5 ML IH ONE (11:43)
[2019-01-01] MEDS ORDERED: dexAMETHasone 20 MG/5 ML VIAL IV ONE (11:43)
[2019-01-01] MEDS ORDERED: ALBUTEROL 2.5 MG/3 ML NEBU IH ONE ×3 (11:43→16:41)
[2019-01-01] MEDS ORDERED: MAGNESIUM SULFATE 2 GM/50 ML BAG IV ONE (12:08)
[2019-01-01] MEDS ORDERED: methylPREDNISolone Sod Succinate 125 MG/2 ML INJ IV ONE (12:08)
[2019-01-01 12:47] LABS: Basophils # (Auto) 0.1 K/mm3 (0.0-0.1); Basophils % (Auto) 0.8 % (0.0-1.8); Eosinophils % (Auto) 0.1 % (0.0-4.3); Hematocrit 46.6 % (30.3-42.9); Hemoglobin 15.7 gm/dl (10.1-14.3); Lymphocytes # (Auto) 2.2 K/mm3 (1.2-5.4); Lymphocytes % (Auto) 17.4 % (13.4-35.0); Mean Corpuscular HGB Conc 34 % (30-34); Mean Corpuscular Volume 91 fl (79-97); Monocytes # (Auto) 1.1 K/mm3 (0.0-0.8); Monocytes % (Auto) 8.6 % (0.0-7.3); Platelet Count 243 K/mm3 (140-440); Red Blood Count 5.14 M/mm3 (3.65-5.03); Red Cell Distribution Width 13.8 % (13.2-15.2)
--- NOTE | 2019-01-01 13:05 | XRay Report ---
CHEST 2 VIEWS INDICATION: SOB. COMPARISON: 12/29/2018. FINDINGS: Support devices: Pacemaker in satisfactory position. Heart: Within normal limits. Lungs/Pleura: No acute air space or interstitial disease. No significant pleural effusion. IMPRESSION: No acute findings. Signer Name: Lukas Christianson MD Signed: 01/01/2019 1:00 PM Workstation Name: [id number]
[2019-01-01 13:09] LABS: BUN/Creatinine Ratio 30; Blood Urea Nitrogen 24 mg/dL (7-17); Calcium 10.9 mg/dL (8.4-10.2); Hemolysis Index 10
[2019-01-01] MEDS ORDERED: INSULIN REGULAR, HUMAN 100 UNITS/1 ML IV ONE (13:22)
[2019-01-01] MEDS ORDERED: SODIUM POLYSTYRENE 15 GM/60 ML ORAL LIQD PO ONE (13:23)
--- NOTE | 2019-01-01 13:46 | Emergency Department Report ---
HPI - General Chief Complaint: Dyspnea/Respdistress Time Seen by Provider: 01/01/19 11:41 - HPI HPI: 63-year-old [place] female presents to the emergency department with complaint of shortness of breath, wheezing, mixed dry and productive cough that has been going on for the past 4-5 days. Patient was seen here on Tuesday and was discharged home with some steroids, albuterol and a Z-Cecilio. She felt that she did not get much relief after taking his medications. The patient had a oxygen saturation of 90% on room air. Patient does admit to some recent travel. She is a tobacco smoker but denies any illicit drug use. She has a history of hypertension and asthma. The patient had a negative CT angiography of the chest a few days ago to rule out a blood clot. ED Past Medical Hx - Past Medical History Previous Medical History?: Yes Hx Hypertension: Yes Hx Congestive Heart Failure: No Hx Diabetes: No Hx Asthma: No Hx COPD: No - Surgical History Past Surgical History?: Yes Additional Surgical History: - Social History Smoking Status: Current Every Day Smoker Substance Use Type: None - Medications Home Medications: Home Medications Medication Instructions Recorded Confirmed Last Taken Type Telmisartan/Hydrochlorothiazid 1 each PO QDAY 04/12/16 01/01/19 Unknown History [Micardis Hct 80-25 mg] Albuterol Sulfate [Albuterol 0.63% 0.63 mg IH TID PRN #1 box 12/29/18 01/01/19 Unknown Rx NEBS] Azithromycin [Zithromax TAB] 250 mg PO QDAY 5 Days #6 tablet 12/29/18 01/01/19 Unknown Rx predniSONE [Deltasone] 20 mg PO QDAY 9 Days #18 tab 12/29/18 01/01/19 Unknown Rx ED Review of Systems ROS: Stated complaint: MAHIN Other details as noted in HPI Comment: All other systems reviewed and negative Constitutional: denies: chills, fever Eyes: denies: eye pain, vision change ENT: denies: ear pain, throat pain Respiratory: cough, shortness of breath, wheezing Cardiovascular: denies: chest pain, edema Gastrointestinal: denies: abdominal pain, vomiting Genitourinary: denies: dysuria, discharge Musculoskeletal: denies: back pain, arthralgia Skin: denies: rash, lesions Neurological: denies: headache, weakness Physical Exam - Physical Exam Vital Signs: Vital Signs 01/01/19 01/01/19 11:45 11:47 Temperature 97.9 F Pulse Rate 106 H Pulse Rate [ 92 H Bilateral] Respiratory 26 H Rate Respiratory 18 Rate [Bilateral ] Blood Pressure 179/95 O2 Sat by Pulse 92 Oximetry Physical Exam: GENERAL: The patient is well-developed well-nourished. HENT: Normocephalic. Atraumatic. Patient has moist mucous membranes. EYES: Extraocular motions are intact. Pupils equal reactive to light bila terally. NECK: Supple. Trachea is midline. CHEST/LUNGS: Moderate wheezing throughout the chest. There is some tachypnea but no accessory muscle use. A productive sounding cough heard during examinat ion. There is no respiratory distress noted. HEART/CARDIOVASCULAR: Regular. There is no tachycardia. There is no murmur. ABDOMEN: Abdomen is soft, nontender. Patient has normal bowel sounds. There is no abdominal distention. SKIN: Skin is warm and dry. NEURO: The patient is awake, alert, and oriented. The patient is cooperative. The patient has no focal neurologic deficits. Normal speech. MUSCULOSKELETAL: There is no tenderness or deformity. There is no evidence of acute injury. ED Course Vital Signs 01/01/19 01/01/19 11:45 11:47 Temperature 97.9 F Pulse Rate 106 H Pulse Rate [ 92 H Bilateral] Respiratory 26 H Rate Respiratory 18 Rate [Bilateral ] Blood Pressure 179/95 O2 Sat by Pulse 92 Oximetry ED Medical Decision Making - Lab Data Result diagrams: 01/01/19 12:29 01/01/19 12:29 - Radiology Data Radiology results: image reviewed interpreted by me: Chest x-ray does not show any acute process. There are no pleural effusions, obvious pneumonia and there is no pneumothorax. - Medical Decision Making This patient returned with the symptoms of shortness of breath, wheezing, coughing that had originally brought her in on Tuesday. On examination the patient has some moderate wheezing but does not appear in any respiratory distress. However the patient had been sitting in the chair without exertion prior to my examination and had arty receive some breathing treatments. Chest x-ray did not show any pneumonia, pleural effusions, focal consolidation, pneumothorax, or any other acute process. The patient's labs show some hyperkalemia with potassium of 5.4 and a blood sugar of about 330. The patient does not have any history of diabetes. It is possible that this is new-onset diabetes, however the patient is also been on steroids over the past 4-5 days and the hyperglycemia could be secondary to this. She was given a dose of IV insulin but her blood sugar did not decrease. She does not appear to be in diabetic ketoacidosis. The patient was given breathing treatments, Solu-Medrol and magnesium upon arrival to the emergency department. The patient was tested walking around the emergency department to see if she would have increased work of breathing or any hypoxia and she ended up having both. The patient only made it about 15-20 feet before she had tachypnea, accessory muscle use, and her pulse ox went down into the 80s. Given this, as well as the failed outpatient treatment, the patient will be admitted to the hospital for further evaluation and treatment. She was accepted for admission by the hospitalist, Dr. Kebede. - Differential Diagnosis pneumonia, COPD, asthma, CHF Critical Care Time: No Critical care attestation.: If time is entered above; I have spent that time in minutes in the direct care of this critically ill patient, excluding procedure time. ED Disposition Clinical Impression: Asthma exacerbation, Hypertension, Hyperglycemia, Failure of outpatient treatment Disposition: OP ADMIT IP TO THIS HOSP Is pt being admited?: Yes Condition: Fair Time of Disposition: 15:30
[2019-01-01] MEDS ORDERED: METOCLOPRAMIDE 10 MG/2 ML INJ IV PRN (17:24)
[2019-01-01] MEDS ORDERED: ONDANSETRON 4 MG/2 ML INJ IV PRN (17:24)
[2019-01-01] MEDS ORDERED: ACETAMINOPHEN 325 MG TAB PO PRN (17:24)
[2019-01-01] MEDS ORDERED: oxyCODONE /ACETAMINOPHEN 5-325MG TAB PO PRN (17:24)
--- NOTE | 2019-01-01 17:24 | History and Physical Report ---
History of Present Illness Date of examination: 01/01/19 Date of admission: 01/01/19 15:30 Chief complaint: Shortness of breath for 4-5 days History of present illness: 63-year-old -[place] female with history of asthma and hypertension comes in for increasing shortness of breath and wheezing for the past 5 days. Cough productive of mucoid sputum. Patient was seen in the emergency room 3 days ago and was discharged with steroids and Z-Cecilio and inhaler. No improvement. Patient had oxygen saturations of 90% on room air. Not responding to nebulizer treatments and steroids in the emergency room and patient on high flow oxygen. Hence patient being admitted. No fever or chills. No recent travel. Patient had a CT angiogram a few days ago which was negative for pulmonary embolism. Past Medical History Previous Medical History?: Yes Hypertension Asthma Surgical History Past Surgical History?: Yes Additional Surgical History: Social History Smoking Status: Current Every Day Smoker Smokes about half a pack a day Substance Use Type: None Family history Htn Medications Home Medications: Home Medications Medication Instructions Recorded Confirmed Last Taken Type Telmisartan/Hydrochlorothiazid 1 each PO QDAY 04/12/16 04/12/16 Unknown History [Micardis Hct 80-25 mg] HYDROcodone/APAP 5-325 [[place] 1 each PO Q6HR PRN #12 tablet 04/14/16 Unknown Rx 5/325] Albuterol Sulfate [Albuterol 0.63% 0.63 mg IH TID PRN #1 box 12/29/18 Unknown Rx NEBS] Azithromycin [Zithromax TAB] 250 mg PO QDAY 5 Days #6 tablet 12/29/18 Unknown Rx predniSONE [Deltasone] 20 mg PO QDAY 9 Days #18 tab 12/29/18 Unknown Rx Review of Systems ROS: Stated complaint: MAHIN Other details as noted in HPI Comment: All other systems reviewed and negative Constitutional: denies: chills, fever Eyes: denies: eye pain, vision change ENT: denies: ear pain, throat pain Respiratory: cough, shortness of breath, wheezing Cardiovascular: denies: chest pain, edema Gastrointestinal: denies: abdominal pain, vomiting Genitourinary: denies: dysuria, discharge Musculoskeletal: denies: back pain, arthralgia Skin: denies: rash, lesions Neurological: denies: headache, weakness Medications and Allergies Allergies Allergy/AdvReac Type Severity Reaction Status Date / Time codeine Allergy Vomiting Verified 12/29/18 08:45 Home Medications Medication Instructions Recorded Confirmed Last Taken Type Telmisartan/Hydrochlorothiazid 1 each PO QDAY 04/12/16 01/01/19 Unknown History [Micardis Hct 80-25 mg] Albuterol Sulfate [Albuterol 0.63% 0.63 mg IH TID PRN #1 box 12/29/18 01/01/19 Unknown Rx NEBS] Azithromycin [Zithromax TAB] 250 mg PO QDAY 5 Days #6 tablet 12/29/18 01/01/19 Unknown Rx predniSONE [Deltasone] 20 mg PO QDAY 9 Days #18 tab 12/29/18 01/01/19 Unknown Rx Exam - Constitutional Vitals: Temp Pulse Resp BP Pulse Ox 97.9 F 106 H 26 H 179/95 92 01/01/19 11:47 01/01/19 11:47 01/01/19 11:47 01/01/19 11:47 01/01/19 11:47 General appearance: Present: mild distress, well-nourished - EENT Eyes: Present: PERRL ENT: hearing intact, clear oral mucosa - Neck Neck: Present: supple, normal ROM - Respiratory Respiratory effort: normal Respiratory: bilateral: diminished, rhonchi, wheezing - Cardiovascular Heart rate: 78 Rhythm: regular Heart Sounds: Present: S1 & S2. Absent: rub, click - Extremities Extremities: no ischemia, pulses intact, pulses symmetrical, No edema Peripheral Pulses: within normal limits - Abdominal General gastrointestinal: Present: soft, non-tender, non-distended, normal bowel sounds Female genitourinary: Present: normal - Rectal Rectal Exam: deferred - Integumentary Integumentary: Present: clear, warm, dry - Musculoskeletal Musculoskeletal: gait normal, strength equal bilaterally - Psychiatric Psychiatric: appropriate mood/affect, intact judgment & insight - Neurologic Neurologic: CNII-XII intact, moves all extremities - Allied Health Allied health notes reviewed: nursing, case management Results - Labs CBC & Chem 7: 01/01/19 12:29 01/01/19 12:29 Labs: Laboratory Last Values WBC 12.8 K/mm3 (4.5-11.0) H 01/01/19 12:29 RBC 5.14 M/mm3 (3.65-5.03) H 01/01/19 12:29 Hgb 15.7 gm/dl (10.1-14.3) H 01/01/19 12:29 Hct 46.6 % (30.3-42.9) H 01/01/19 12:29 MCV 91 fl (79-97) 01/01/19 12:29 MCH 31 pg (28-32) 01/01/19 12:29 MCHC 34 % (30-34) 01/01/19 12:29 RDW 13.8 % (13.2-15.2) 01/01/19 12:29 Plt Count 243 K/mm3 (140-440) 01/01/19 12:29 Lymph % (Auto) 17.4 % (13.4-35.0) 01/01/19 12:29 [place] % (Auto) 8.6 % (0.0-7.3) H 01/01/19 12:29 Eos % (Auto) 0.1 % (0.0-4.3) 01/01/19 12:29 Baso % (Auto) 0.8 % (0.0-1.8) 01/01/19 12:29 Lymph # 2.2 K/mm3 (1.2-5.4) 01/01/19 12:29 [place] # 1.1 K/mm3 (0.0-0.8) H 01/01/19 12:29 Eos # 0.0 K/mm3 (0.0-0.4) 01/01/19 12:29 Baso # 0.1 K/mm3 (0.0-0.1) 01/01/19 12:29 Seg Neutrophils % 73.1 % (40.0-70.0) H 01/01/19 12:29 Seg Neutrophils # 9.4 K/mm3 (1.8-7.7) H 01/01/19 12:29 Sodium 140 mmol/L (137-145) 01/01/19 12:29 Potassium 5.4 mmol/L (3.6-5.0) H D 01/01/19 12:29 Chloride 98.3 mmol/L (98-107) 01/01/19 12:29 Carbon Dioxide 27 mmol/L (22-30) 01/01/19 12:29 Anion Gap 20 mmol/L 01/01/19 12:29 BUN 24 mg/dL (7-17) H 01/01/19 12:29 Creatinine 0.8 mg/dL (0.7-1.2) 01/01/19 12:29 Estimated GFR > 60 ml/min 01/01/19 12:29 BUN/Creatinine Ratio 30 % 01/01/19 12:29 Glucose 335 mg/dL (65-100) H 01/01/19 12:29 Calcium 10.9 mg/dL (8.4-10.2) H 01/01/19 12:29 Troponin T < 0.010 ng/mL (0.00-0.029) 01/01/19 12:29 NT-Pro-B Natriuret Pep 208.3 pg/mL (0-900) 01/01/19 12:29 Short CBC 01/01/19 Range/Units 12:29 WBC 12.8 H (4.5-11.0) K/mm3 Hgb 15.7 H (10.1-14.3) gm/dl Hct 46.6 H (30.3-42.9) % Plt Count 243 (140-440) K/mm3 BMP 01/01/19 12:29 Sodium 140 Potassium 5.4 H D Chloride 98.3 Carbon Dioxide 27 BUN 24 H Creatinine 0.8 Glucose 335 H Calcium 10.9 H Cardiac Enzymes 01/01/19 Range/Units 12:29 Troponin T < 0.010 (0.00-0.029) ng/mL - Imaging and Cardiology Chest x-ray: report reviewed (NAF) Assessment and Plan - Patient Problems (1) Acute respiratory failure Current Visit: Yes Status: Acute Qualifiers: Respiratory failure complication: hypoxia Qualified Code(s): J96.01 - Acute respiratory failure with hypoxia Plan to address problem: Patient is hypoxic at the time of admission Sats were 89% and 90% Improved with oxygenation nebulizer treatments and steroids Patient to be continued on nebulizer treatments and steroids and antibiotics Patient is an 50% Ventimask BiPAP if necessary Intubation if necessary (2) Asthma exacerbation Current Visit: Yes Status: Acute Qualifiers: Asthma severity: severe Plan to address problem: Patient initiated on IV steroids and IV antibiotics and nebulizer treatments around the clock and when necessary (3) Hypertension Current Visit: Yes Status: Chronic Qualifiers: Hypertension type: essential hypertension Qualified Code(s): I10 - Essential (primary) hypertension Plan to address problem: Continue antihypertensives in the form of telmisartan or equivalent Monitor blood pressure and adjust medications (4) New onset type 2 diabetes mellitus Current Visit: Yes Status: Acute Plan to address problem: Patient has high blood glucose levels May be secondary to prednisone Will get hemoglobin A1c Patient initiated on Accu-Cheks and coverage Metformin initiated (5) Hyperkalemia Current Visit: Yes Status: Acute Plan to address problem: Kayexalate given in the emergency room Recheck potassium level May be steroid-induced (6) DVT prophylaxis Current Visit: Yes Status: Acute Plan to address problem: On Lovenox and GI prophylaxis
[2019-01-01] MEDS ORDERED: ALBUTEROL 2.5 MG/3 ML NEBU IH PRN (17:26)
[2019-01-01] MEDS ORDERED: HYDROCHLOROTHIAZID PO SCH (17:30)
[2019-01-01] MEDS ORDERED: TELMISARTAN PO SCH (17:30)
[2019-01-01] MEDS ORDERED: SODIUM POLYSTYRENE 15 GM/60 ML ORAL LIQD ONE (17:33)
[2019-01-01] MEDS: methylPREDNISolone Sod Succinate 125 MG/2 ML INJ IV SCH ×2 (18:44→22:15)
[2019-01-01] MEDS: SODIUM CHLORIDE 0.9% 1000 ML 1,000 ML IV SCH (18:44)
[2019-01-01] MEDS: cefTRIAXone/NS 2 GM/100 ML 2 GM/100 ML BAG IV SCH (18:47)
[2019-01-01] MEDS: AZITHROMYCIN 500 MG in SODIUM CHLORIDE 0.9% 250ML 250 ML IV SCH (18:47)
[2019-01-01] MEDS: LOSARTAN 50 MG TAB PO SCH (18:53)
[2019-01-01] MEDS: hydroCHLOROthiazide 25 MG TAB PO SCH (18:53)
[2019-01-01] MEDS: FAMOTIDINE 20 MG/2 ML INJ IV SCH (22:18)
[2019-01-01] MEDS: INSULIN LISPRO 100 UNIT/ML SUB-Q SCH (22:18)
[2019-01-02] MEDS: methylPREDNISolone Sod Succinate 125 MG/2 ML INJ IV SCH ×3 (05:12→21:25)
[2019-01-02] MEDS: INSULIN LISPRO 100 UNIT/ML SUB-Q SCH ×4 (07:30→21:25)
[2019-01-02] MEDS: SODIUM CHLORIDE 0.9% 1000 ML 1,000 ML IV SCH (08:28)
[2019-01-02 08:51] LABS: Basophils % (Auto) 0.3 % (0.0-1.8); Hematocrit 43.2 % (30.3-42.9); Hemoglobin 14.3 gm/dl (10.1-14.3); Lymphocytes % (Auto) 11.1 % (13.4-35.0); Mean Corpuscular HGB Conc 33 % (30-34); Mean Corpuscular Volume 91 fl (79-97); Monocytes # (Auto) 0.4 K/mm3 (0.0-0.8); Monocytes % (Auto) 4.6 % (0.0-7.3); Platelet Count 207 K/mm3 (140-440); Red Blood Count 4.75 M/mm3 (3.65-5.03); Red Cell Distribution Width 13.4 % (13.2-15.2)
[2019-01-02 09:03] LABS: Alanine Aminotransferase 13 units/L (7-56); Albumin 3.9 g/dL (3.9-5); BUN/Creatinine Ratio 30; Blood Urea Nitrogen 21 mg/dL (7-17); Calcium 9.6 mg/dL (8.4-10.2); Hemolysis Index 3
[2019-01-02] MEDS: cefTRIAXone/NS 2 GM/100 ML 2 GM/100 ML BAG IV SCH (11:52)
[2019-01-02] MEDS: AZITHROMYCIN 500 MG in SODIUM CHLORIDE 0.9% 250ML 250 ML IV SCH (11:52)
[2019-01-02] MEDS: FAMOTIDINE 20 MG/2 ML INJ IV SCH ×2 (11:53→21:25)
[2019-01-02] MEDS: LOSARTAN 50 MG TAB PO SCH (11:53)
[2019-01-02] MEDS: hydroCHLOROthiazide 25 MG TAB PO SCH (11:53)
[2019-01-02] MEDS ORDERED: ALUM-MAG HYDROXIDE-SIMETHICONE 200-200-20MG/5ML ORAL LIQD 30 ML PO PRN (14:38)
[2019-01-03] MEDS: SODIUM CHLORIDE 0.9% 1000 ML 1,000 ML IV SCH ×2 (03:10→18:36)
[2019-01-03] MEDS: methylPREDNISolone Sod Succinate 125 MG/2 ML INJ IV SCH ×3 (05:25→22:07)
[2019-01-03] MEDS: INSULIN LISPRO 100 UNIT/ML SUB-Q SCH ×4 (08:42→22:06)
[2019-01-03] MEDS: FAMOTIDINE 20 MG/2 ML INJ IV SCH ×2 (10:22→22:07)
[2019-01-03] MEDS: LOSARTAN 50 MG TAB PO SCH (10:23)
[2019-01-03] MEDS: hydroCHLOROthiazide 25 MG TAB PO SCH (10:23)
[2019-01-03] MEDS: AZITHROMYCIN 500 MG in SODIUM CHLORIDE 0.9% 250ML 250 ML IV SCH (10:24)
[2019-01-03] MEDS: cefTRIAXone/NS 2 GM/100 ML 2 GM/100 ML BAG IV SCH (10:24)
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
--- NOTE | 2019-01-03 11:39 | Discharge Summary ---
Providers - Providers Date of Admission: 01/01/19 15:30 Date of discharge: 01/04/19 Attending physician: JAKOB PINEDA 01/02/19 12:24 Consult to Physician [CONS] Routine Comment: Consulting Provider: MAIRE BARTLETT Physician Instructions: Reason For Exam: resp failure Primary care physician: LEAF SORTER Hospitalization Reason for admission: asthma exac Condition: Fair Hospital course: 63-year-old female who presented to the emergency department with past medical history of asthma hypertension complaints of dyspnea for 5 days prior to admission. Patient reported a cough productive of mucoid sputum. Patient was recently seen in the emergency room 3 days prior to her admission with similar complaints and was discharged with steroids, Z-Cecilio and inhaler with no improvement. Patient was admitted with diagnosis of asthma exacerbation and acute hypoxic respiratory failure with failed outpatient treatment. Patient reportedly did not respond to steroids and high flow oxygen in the emergency room. Patient had a CT angiogram gram on the initial ER visit that was negative for pulmonary embolism. After admission, patient received IV azithromycin, nebulizer treatments, inhaled steroids and systemic steroids with significant improvement. Patient returned back to her baseline respiratory status and is felt to have received maximal hospital benefit for discharge. Dedicated discharge time 32 minutes. Disposition: DC- TO HOME OR SELFCARE Time spent for discharge: 32 - Discharge Diagnoses (1) Acute respiratory failure Status: Acute Qualifiers: Respiratory failure complication: hypoxia Qualified Code(s): J96.01 - Acute respiratory failure with hypoxia (2) Asthma exacerbation Status: Acute Qualifiers: Asthma severity: severe (3) New onset type 2 diabetes mellitus Status: Acute (4) Hypertension Status: Chronic Qualifiers: Hypertension type: essential hypertension Qualified Code(s): I10 - Essential (primary) hypertension Core Measure Documentation - Palliative Care Palliative Care/ Comfort Measures: Not Applicable - Core Measures Any of the following diagnoses?: none Exam - Constitutional Vitals: Temp Pulse Resp BP Pulse Ox 98.1 F 65 18 163/82 95 01/03/19 05:08 01/03/19 05:08 01/03/19 05:08 01/03/19 10:23 01/03/19 05:08 General appearance: Present: no acute distress, well-nourished - EENT Eyes: Present: PERRL ENT: hearing intact, clear oral mucosa - Neck Neck: Present: supple, normal ROM - Respiratory Respiratory effort: normal Respiratory: bilateral: CTA - Cardiovascular Heart Sounds: Present: S1 & S2. Absent: rub, click - Extremities Extremities: pulses symmetrical, No edema Peripheral Pulses: within normal limits - Abdominal General gastrointestinal: Present: soft, non-tender, non-distended, normal bowel sounds Female genitourinary: Present: normal - Integumentary Integumentary: Present: clear, warm, dry - Musculoskeletal Musculoskeletal: gait normal, strength equal bilaterally - Psychiatric Psychiatric: appropriate mood/affect, intact judgment & insight - Neurologic Neurologic: CNII-XII intact, moves all extremities Plan Activity: advance as tolerated Weight Bearing Status: Weight Bear as Tolerated Diet: diabetic Follow up with: PRIMARY CARE,MD [Primary Care Provider] - 3-5 Days Prescriptions: predniSONE [Deltasone] 20 mg PO QDAY 9 Days #18 tab Albuterol Sulfate [Proair Respiclick] 90 mcg IH Q6HR 30 Days [email or web address] ALPRAZolam [Xanax TAB] 0.25 mg PO BID PRN #12 tab PRN Reason: Anxiety Azithromycin [Zithromax TAB] 250 mg PO QDAY 5 Days #6 tablet
--- NOTE | 2019-01-03 11:53 | Progress Note ---
Assessment and Plan Assessment and plan: Acute respiratory failure Patient is hypoxic at the time of admission Sats were 89% and 90% Improved with oxygenation nebulizer treatments and steroids Patient to be continued on nebulizer treatments and steroids and antibiotics Patient is an 50% Ventimask BiPAP if necessary Intubation if necessary (2) Asthma exacerbation Patient initiated on IV steroids and IV antibiotics and nebulizer treatments around the clock and when necessary (3) Hypertension Continue antihypertensives in the form of telmisartan or equivalent Monitor blood pressure and adjust medications (4) New onset type 2 diabetes mellitus Patient has high blood glucose levels May be secondary to prednisone Will get hemoglobin A1c Patient initiated on Accu-Cheks and coverage Metformin initiated (5) Hyperkalemia Kayexalate given in the emergency room Recheck potassium level May be steroid-induced - Patient Problems (1) Acute respiratory failure Current Visit: Yes Status: Acute Qualifiers: Respiratory failure complication: hypoxia Qualified Code(s): J96.01 - Acute respiratory failure with hypoxia (2) Asthma exacerbation Current Visit: Yes Status: Acute Qualifiers: Asthma severity: severe (3) New onset type 2 diabetes mellitus Current Visit: Yes Status: Acute (4) Hypertension Current Visit: Yes Status: Chronic Qualifiers: Hypertension type: essential hypertension Qualified Code(s): I10 - Essential (primary) hypertension History Interval history: Patient reports dyspnea with exertion. No complaints of chest pain Hospitalist Physical - Constitutional Vitals: Temp Pulse Resp BP Pulse Ox 98.1 F 72 18 150/72 96 01/03/19 11:14 01/03/19 11:14 01/03/19 11:14 01/03/19 11:14 01/03/19 11:14 General appearance: Present: no acute distress, well-nourished - EENT Eyes: Present: PERRL, EOM intact ENT: hearing intact, clear oral mucosa, dentition normal - Neck Neck: Present: supple, normal ROM - Respiratory Respiratory effort: normal Respiratory: bilateral: CTA - Cardiovascular Rhythm: regular Heart Sounds: Present: S1 & S2. Absent: gallop, rub - Extremities Extremities: no ischemia, No edema, Full ROM - Abdominal General gastrointestinal: soft, non-tender, non-distended, normal bowel sounds - Integumentary Integumentary: Present: clear, warm, dry - Neurologic Neurologic: CNII-XII intact, moves all extremities Results - Labs CBC & Chem 7: 01/02/19 07:35 01/02/19 07:21 Labs: Laboratory Last Values WBC 9.5 K/mm3 (4.5-11.0) 01/02/19 07:35 RBC 4.75 M/mm3 (3.65-5.03) 01/02/19 07:35 Hgb 14.3 gm/dl (10.1-14.3) 01/02/19 07:35 Hct 43.2 % (30.3-42.9) H 01/02/19 07:35 MCV 91 fl (79-97) 01/02/19 07:35 MCH 30 pg (28-32) 01/02/19 07:35 MCHC 33 % (30-34) 01/02/19 07:35 RDW 13.4 % (13.2-15.2) 01/02/19 07:35 Plt Count 207 K/mm3 (140-440) 01/02/19 07:35 Lymph % (Auto) 11.1 % (13.4-35.0) L 01/02/19 07:35 [place] % (Auto) 4.6 % (0.0-7.3) 01/02/19 07:35 Eos % (Auto) 0.0 % (0.0-4.3) 01/02/19 07:35 Baso % (Auto) 0.3 % (0.0-1.8) 01/02/19 07:35 Lymph # 1.0 K/mm3 (1.2-5.4) L 01/02/19 07:35 [place] # 0.4 K/mm3 (0.0-0.8) 01/02/19 07:35 Eos # 0.0 K/mm3 (0.0-0.4) 01/02/19 07:35 Baso # 0.0 K/mm3 (0.0-0.1) 01/02/19 07:35 Seg Neutrophils % 84.0 % (40.0-70.0) H 01/02/19 07:35 Seg Neutrophils # 8.0 K/mm3 (1.8-7.7) H 01/02/19 07:35 Sodium 141 mmol/L (137-145) 01/02/19 07:21 Potassium 4.6 mmol/L (3.6-5.0) 01/02/19 07:21 Chloride 101.1 mmol/L (98-107) 01/02/19 07:21 Carbon Dioxide 27 mmol/L (22-30) 01/02/19 07:21 Anion Gap 18 mmol/L 01/02/19 07:21 BUN 21 mg/dL (7-17) H 01/02/19 07:21 Creatinine 0.7 mg/dL (0.7-1.2) 01/02/19 07:21 Estimated GFR > 60 ml/min 01/02/19 07:21 BUN/Creatinine Ratio 30 % 01/02/19 07:21 Glucose 333 mg/dL (65-100) H 01/02/19 07:21 POC Glucose 279 (70-105) H 01/03/19 07:42 Hemoglobin A1c 8.5 % (4-6) H 01/01/19 19:21 Calcium 9.6 mg/dL (8.4-10.2) 01/02/19 07:21 Total Bilirubin 0.20 mg/dL (0.1-1.2) 01/02/19 07:21 AST 13 units/L (5-40) 01/02/19 07:21 ALT 13 units/L (7-56) 01/02/19 07:21 Alkaline Phosphatase 71 units/L (35-129) 01/02/19 07:21 Troponin T < 0.010 ng/mL (0.00-0.029) 01/01/19 12:29 NT-Pro-B Natriuret Pep 208.3 pg/mL (0-900) 01/01/19 12:29 Total Protein 6.8 g/dL (6.3-8.2) 01/02/19 07:21 Albumin 3.9 g/dL (3.9-5) 01/02/19 07:21 Albumin/Globulin Ratio 1.3 % 01/02/19 07:21 Active Medications - Current Medications Current Medications: Generic Name Dose Route Start Last Admin Trade Name Freq PRN Reason Stop Dose Admin Acetaminophen 650 mg 01/01/19 17:24 Tylenol PO Q4H PRN Pain MILD(1-3)/Fever >100.5/OCHOA Al Hydrox/Mg Hydrox/Simethicone 30 ml 01/02/19 14:38 01/02/19 14:51 Alum-Mag Hydrox-Simeth [id number]/5ml PO 30 ml Q4H PRN Administration Indigestion Albuterol 2.5 mg 01/01/19 17:26 01/01/19 22:45 Proventil IH 2.5 mg Q3H PRN Administration Shortness Of Breath Arformoterol Tartrate 15 mcg 01/03/19 11:15 Brovana Nebu IH Q12HRT BO Budesonide 0.5 mg 01/03/19 11:15 Pulmicort IH Q12HRT BO Famotidine 20 mg 01/01/19 22:00 01/03/19 10:22 Pepcid IV 20 mg BID BO Administration Hydrochlorothiazide 25 mg 01/01/19 17:45 01/03/19 10:23 Hctz PO 25 mg QDAY BO Administration Sodium Chloride 1,000 mls @ 75 mls/hr 01/01/19 18:00 01/03/19 03:10 Nacl 0.9% 1000 Ml IV 75 mls/hr DIRECT BO Administration Azithromycin 500 mg/ Sodium 250 mls @ 250 mls/hr 01/01/19 18:00 01/03/19 10:24 Chloride IV 01/05/19 10:59 250 mls/hr Q24HR BO Administration Protocol Ceftriaxone Sodium 2 gm in 100 mls @ 200 mls/hr 01/01/19 18:00 01/03/19 10:24 Rocephin/Ns 2 Gm/100 Ml IV 200 mls/hr Q24HR BO Administration Protocol Insulin Human Lispro 0 unit 01/01/19 22:00 01/03/19 08:42 Humalog SUB-Q 4 unit ACHS BO Administration Protocol Losartan Potassium 50 mg 01/01/19 17:45 01/03/19 10:23 Cozaar PO 50 mg QDAY BO Administration Methylprednisolone Sodium Succinate 60 mg 01/01/19 18:00 01/03/19 05:25 Solu-Medrol IV 60 mg Q8HR BO Administration Metoclopramide HCl 10 mg 01/01/19 17:24 Reglan IV Q6H PRN Nausea And Vomiting Ondansetron HCl 4 mg 01/01/19 17:24 Zofran IV Q8H PRN Nausea And Vomiting Oxycodone/Acetaminophen 1 tab 01/01/19 17:24 Percocet 5/325 PO Q6H PRN Pain, Moderate (4-6) Sodium Chloride 10 ml 01/01/19 22:00 01/03/19 10:24 Sodium Chloride Flush Syringe 10 Ml IV 10 ml BID BO Administration Sodium Chloride 10 ml 01/01/19 17:24 Sodium Chloride Flush Syringe 10 Ml IV PRN PRN LINE FLUSH Nutrition/Malnutrition Assess - Dietary Evaluation Nutrition/Malnutrition Findings: Nutrition Notes Start: 01/02/19 10:19 Freq: Status: Active Protocol: Document 01/02/19 10:20 CT (Rec: 01/02/19 10:40 CT [id number]) Co-Sign 01/02/19 10:20 KH Nutrition Notes Need for Assessment generated from: Low BMI Initial or Follow up Assessment Current Diagnosis Hypertension Other Pertinent Diagnosis Asthma, SOB Current Diet Cardiac Diet Labs/Tests POC Glu 345 Pertinent Medications Humalog NS 0.9% 75 ml/hr Albuterol Solu-Medrol Height 5 ft 8 in Weight 53.9 kg Usual Body Weight 56.699 kg [place] Body Weight (kg) 63.63 BMI 18.0 Intake Prior to Admission Excellent Weight change and time frame Pt denied recent weight loss Weight Status Underweight Subjective/Other Information Pt states that her usual body weight is 125 lbs and has been that for the last 15 years. Pt ate about 50% of her breakfast tray, stating that she did not want to finish the pancake and syrup due to her BG being elevated from the steriods she has received. 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 Percent of energy/protein needs met: 71% energy / 96% protein Burn Absent Trauma Absent GI Symptoms None Food Allergy No Usual Diet at Home Cardiac Current % PO Fair (50-74%) Minimum of two criteria No physical signs of malnutrition #1 Nutrition Diagnosis Inadequate oral intake Etiology Pt concern of glucose being elevated secondary to Solu- Medrol As Evidenced by Signs and Symptoms Pt consuming 50% of breakfast tray and avoiding juice. Is patient on ventilator? No Is Patient Ambulatory and/or Out of Bed Yes REE-([place]-St. Jeor-ambulatory/OOB) [ 2178.750 NUTR.MSJOOB] Calculation Used for Recommendations [place]-St Jeor Additional Notes PRO needs 43-64 g/day (0.8-1 g /kg/day) Fluid Needs 1 ml/kcal Nutrition Intervention Change Diet Order: Continue Cardiac Diet Goal #1 Meet >80% of energy and protein needs Anticipated Discharge Needs: Cardiac Diet Follow-Up By: 01/04/19 Additional Comments Follow up for PO intakes and need for ONS
[2019-01-03] MEDS: BUDESONIDE 0.5 MG/2 ML NEBU IH SCH ×2 (14:04→19:26)
[2019-01-03] MEDS: ARFORMOTEROL 15 MCG/2 ML NEBU IH SCH ×2 (14:04→19:25)
[2019-01-04] MEDS: methylPREDNISolone Sod Succinate 125 MG/2 ML INJ IV SCH (05:28)
[2019-01-04] MEDS: SODIUM CHLORIDE 0.9% 1000 ML 1,000 ML IV SCH (05:29)
--- NOTE | 2019-01-04 07:46 | Progress Note ---
Assessment and Plan Assessment and plan: Acute respiratory failure Patient is hypoxic at the time of admission Sats were 89% and 90% Improved with oxygenation nebulizer treatments and steroids Patient to be continued on nebulizer treatments and steroids and antibiotics Patient is an 50% Ventimask BiPAP if necessary Intubation if necessary (2) Asthma exacerbation Taper IV steroids and IV antibiotics and nebulizer treatments (3) Hypertension Continue antihypertensives in the form of telmisartan or equivalent Monitor blood pressure and adjust medications (4) New onset type 2 diabetes mellitus Patient has high blood glucose levels May be secondary to prednisone Will get hemoglobin A1c Patient initiated on Accu-Cheks and coverage Metformin initiated (5) Hyperkalemia resolved - Patient Problems (1) Acute respiratory failure Current Visit: Yes Status: Acute Qualifiers: Respiratory failure complication: hypoxia Qualified Code(s): J96.01 - Acute respiratory failure with hypoxia (2) Asthma exacerbation Current Visit: Yes Status: Acute Qualifiers: Asthma severity: severe (3) New onset type 2 diabetes mellitus Current Visit: Yes Status: Acute (4) Hypertension Current Visit: Yes Status: Chronic Qualifiers: Hypertension type: essential hypertension Qualified Code(s): I10 - Essential (primary) hypertension History Interval history: Patient reports dyspnea with exertion. No complaints of chest pain Hospitalist Physical - Constitutional Vitals: Temp Pulse Resp BP Pulse Ox 98.3 F 60 24 126/61 94 01/04/19 04:50 01/04/19 04:50 01/04/19 04:50 01/04/19 04:50 01/04/19 07:37 General appearance: Present: no acute distress, well-nourished - EENT Eyes: Present: PERRL, EOM intact ENT: hearing intact, clear oral mucosa, dentition normal - Neck Neck: Present: supple, normal ROM - Respiratory Respiratory effort: normal Respiratory: bilateral: CTA - Cardiovascular Rhythm: regular Heart Sounds: Present: S1 & S2. Absent: gallop, rub - Extremities Extremities: no ischemia, No edema, Full ROM - Abdominal General gastrointestinal: soft, non-tender, non-distended, normal bowel sounds - Integumentary Integumentary: Present: clear, warm, dry - Neurologic Neurologic: CNII-XII intact, moves all extremities Results - Labs CBC & Chem 7: 01/02/19 07:35 01/02/19 07:21 Labs: Laboratory Last Values WBC 9.5 K/mm3 (4.5-11.0) 01/02/19 07:35 RBC 4.75 M/mm3 (3.65-5.03) 01/02/19 07:35 Hgb 14.3 gm/dl (10.1-14.3) 01/02/19 07:35 Hct 43.2 % (30.3-42.9) H 01/02/19 07:35 MCV 91 fl (79-97) 01/02/19 07:35 MCH 30 pg (28-32) 01/02/19 07:35 MCHC 33 % (30-34) 01/02/19 07:35 RDW 13.4 % (13.2-15.2) 01/02/19 07:35 Plt Count 207 K/mm3 (140-440) 01/02/19 07:35 Lymph % (Auto) 11.1 % (13.4-35.0) L 01/02/19 07:35 [place] % (Auto) 4.6 % (0.0-7.3) 01/02/19 07:35 Eos % (Auto) 0.0 % (0.0-4.3) 01/02/19 07:35 Baso % (Auto) 0.3 % (0.0-1.8) 01/02/19 07:35 Lymph # 1.0 K/mm3 (1.2-5.4) L 01/02/19 07:35 [place] # 0.4 K/mm3 (0.0-0.8) 01/02/19 07:35 Eos # 0.0 K/mm3 (0.0-0.4) 01/02/19 07:35 Baso # 0.0 K/mm3 (0.0-0.1) 01/02/19 07:35 Seg Neutrophils % 84.0 % (40.0-70.0) H 01/02/19 07:35 Seg Neutrophils # 8.0 K/mm3 (1.8-7.7) H 01/02/19 07:35 Sodium 141 mmol/L (137-145) 01/02/19 07:21 Potassium 4.6 mmol/L (3.6-5.0) 01/02/19 07:21 Chloride 101.1 mmol/L (98-107) 01/02/19 07:21 Carbon Dioxide 27 mmol/L (22-30) 01/02/19 07:21 Anion Gap 18 mmol/L 01/02/19 07:21 BUN 21 mg/dL (7-17) H 01/02/19 07:21 Creatinine 0.7 mg/dL (0.7-1.2) 01/02/19 07:21 Estimated GFR > 60 ml/min 01/02/19 07:21 BUN/Creatinine Ratio 30 % 01/02/19 07:21 Glucose 333 mg/dL (65-100) H 01/02/19 07:21 POC Glucose 274 (70-105) H 01/03/19 21:17 Hemoglobin A1c 8.5 % (4-6) H 01/01/19 19:21 Calcium 9.6 mg/dL (8.4-10.2) 01/02/19 07:21 Total Bilirubin 0.20 mg/dL (0.1-1.2) 01/02/19 07:21 AST 13 units/L (5-40) 01/02/19 07:21 ALT 13 units/L (7-56) 01/02/19 07:21 Alkaline Phosphatase 71 units/L (35-129) 01/02/19 07:21 Troponin T < 0.010 ng/mL (0.00-0.029) 01/01/19 12:29 NT-Pro-B Natriuret Pep 208.3 pg/mL (0-900) 01/01/19 12:29 Total Protein 6.8 g/dL (6.3-8.2) 01/02/19 07:21 Albumin 3.9 g/dL (3.9-5) 01/02/19 07:21 Albumin/Globulin Ratio 1.3 % 01/02/19 07:21 Active Medications - Current Medications Current Medications: Generic Name Dose Route Start Last Admin Trade Name Freq PRN Reason Stop Dose Admin Acetaminophen 650 mg 01/01/19 17:24 Tylenol PO Q4H PRN Pain MILD(1-3)/Fever >100.5/OCHOA Al Hydrox/Mg Hydrox/Simethicone 30 ml 01/02/19 14:38 01/02/19 14:51 Alum-Mag Hydrox-Simeth [id number]/5ml PO 30 ml Q4H PRN Administration Indigestion Albuterol 2.5 mg 01/01/19 17:26 01/01/19 22:45 Proventil IH 2.5 mg Q3H PRN Administration Shortness Of Breath Arformoterol Tartrate 15 mcg 01/03/19 11:15 01/03/19 19:25 Brovana Nebu IH 15 mcg Q12HRT BO Administration Budesonide 0.5 mg 01/03/19 11:15 01/03/19 19:26 Pulmicort IH 0.5 mg Q12HRT BO Administration Famotidine 20 mg 01/01/19 22:00 01/03/19 22:07 Pepcid IV 20 mg BID BO Administration Hydrochlorothiazide 25 mg 01/01/19 17:45 01/03/19 10:23 Hctz PO 25 mg QDAY BO Administration Sodium Chloride 1,000 mls @ 75 mls/hr 01/01/19 18:00 01/04/19 05:29 Nacl 0.9% 1000 Ml IV 75 mls/hr DIRECT BO Administration Azithromycin 500 mg/ Sodium 250 mls @ 250 mls/hr 01/01/19 18:00 01/03/19 10:24 Chloride IV 01/05/19 10:59 250 mls/hr Q24HR BO Administration Protocol Ceftriaxone Sodium 2 gm in 100 mls @ 200 mls/hr 01/01/19 18:00 01/03/19 10:24 Rocephin/Ns 2 Gm/100 Ml IV 200 mls/hr Q24HR BO Administration Protocol Insulin Human Lispro 0 unit 01/01/19 22:00 01/03/19 22:06 Humalog SUB-Q 4 unit ACHS BO Administration Protocol Losartan Potassium 50 mg 01/01/19 17:45 01/03/19 10:23 Cozaar PO 50 mg QDAY BO Administration Methylprednisolone Sodium Succinate 60 mg 01/01/19 18:00 01/04/19 05:28 Solu-Medrol IV 60 mg Q8HR BO Administration Metoclopramide HCl 10 mg 01/01/19 17:24 Reglan IV Q6H PRN Nausea And Vomiting Ondansetron HCl 4 mg 01/01/19 17:24 Zofran IV Q8H PRN Nausea And Vomiting Oxycodone/Acetaminophen 1 tab 01/01/19 17:24 Percocet 5/325 PO Q6H PRN Pain, Moderate (4-6) Sodium Chloride 10 ml 01/01/19 22:00 01/03/19 22:07 Sodium Chloride Flush Syringe 10 Ml IV 10 ml BID BO Administration Sodium Chloride 10 ml 01/01/19 17:24 Sodium Chloride Flush Syringe 10 Ml IV PRN PRN LINE FLUSH Nutrition/Malnutrition Assess - Dietary Evaluation Nutrition/Malnutrition Findings: Nutrition Notes Start: 01/02/19 10:19 Freq: Status: Active Protocol: Document 01/02/19 10:20 CT (Rec: 01/02/19 10:40 CT [id number]) Co-Sign 01/02/19 10:20 KH Nutrition Notes Need for Assessment generated from: Low BMI Initial or Follow up Assessment Current Diagnosis Hypertension Other Pertinent Diagnosis Asthma, SOB Current Diet Cardiac Diet Labs/Tests POC Glu 345 Pertinent Medications Humalog NS 0.9% 75 ml/hr Albuterol Solu-Medrol Height 5 ft 8 in Weight 53.9 kg Usual Body Weight 56.699 kg [place] Body Weight (kg) 63.63 BMI 18.0 Intake Prior to Admission Excellent Weight change and time frame Pt denied recent weight loss Weight Status Underweight Subjective/Other Information Pt states that her usual body weight is 125 lbs and has been that for the last 15 years. Pt ate about 50% of her breakfast tray, stating that she did not want to finish the pancake and syrup due to her BG being elevated from the steriods she has received. 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 Percent of energy/protein needs met: 71% energy / 96% protein Burn Absent Trauma Absent GI Symptoms None Food Allergy No Usual Diet at Home Cardiac Current % PO Fair (50-74%) Minimum of two criteria No physical signs of malnutrition #1 Nutrition Diagnosis Inadequate oral intake Etiology Pt concern of glucose being elevated secondary to Solu- Medrol As Evidenced by Signs and Symptoms Pt consuming 50% of breakfast tray and avoiding juice. Is patient on ventilator? No Is Patient Ambulatory and/or Out of Bed Yes REE-([place]-St. Jeor-ambulatory/OOB) [ 2398.750 NUTR.MSJOOB] Calculation Used for Recommendations [place]-St Jeor Additional Notes PRO needs 43-64 g/day (0.8-1 g /kg/day) Fluid Needs 1 ml/kcal Nutrition Intervention Change Diet Order: Continue Cardiac Diet Goal #1 Meet >80% of energy and protein needs Anticipated Discharge Needs: Cardiac Diet Follow-Up By: 01/04/19 Additional Comments Follow up for PO intakes and need for ONS
--- NOTE | 2019-01-04 07:52 | Progress Note ---
Assessment and Plan 63 y/o female with asthma admitted with asthma exacerbation. 1. Ready for PO pred, please send out on the following taper: Prednisone 60 daily for 4 days, 40 daily for 4 days, 20 daily for 4 days, then 10 daily for 4 days then stop. 2. Per patient not on any maintenance therapy. Will need a script for at least albuterol rescue inhaler (proair, ventolin, proventil, any of these will do. 1- 2 puffs q4-6 hours PRN) 3. Smoking cessation 4. Can follow up in office with us at least once 5. No objection to discharge today. Thank you for the consult. Will continue to follow along with you. Subjective Date of service: 01/04/19 Interval history: No acute events overnight. Stable. Objective Vital Signs - 12hr 01/03/19 01/04/19 01/04/19 21:11 04:50 07:37 Temperature 98.2 F 98.3 F Pulse Rate 71 60 Respiratory 18 24 Rate Blood Pressure 136/71 126/61 O2 Sat by Pulse 94 98 94 Oximetry Constitutional: no acute distress, alert Eyes: non-icteric ENT: oropharynx moist Neck: supple, no JVD Effort: normal Ascultation: Bilateral: wheezes Percussion: Bilateral: not dull Tactile fremitus: Bilateral: normal Cardiovascular: regular rate and rhythm Gastrointestinal: normoactive bowel sounds, soft Extremities: no edema, pink and warm, pulses normal Neurologic: normal mental status, non-focal exam Psychiatric: anxious CBC and BMP: 01/02/19 07:35 01/02/19 07:21 Abnormal lab findings: Abnormal Labs 01/01/19 01/01/19 01/01/19 12:29 12:29 15:32 WBC 12.8 H RBC 5.14 H Hgb 15.7 H Hct 46.6 H Lymph % (Auto) [place] % (Auto) 8.6 H Lymph # [place] # 1.1 H Seg Neutrophils % 73.1 H Seg Neutrophils # 9.4 H Potassium 5.4 H D BUN 24 H Glucose 335 H POC Glucose 330 H Hemoglobin A1c Calcium 10.9 H 01/01/19 01/01/19 01/01/19 19:21 21:29 22:10 WBC RBC Hgb Hct Lymph % (Auto) [place] % (Auto) Lymph # [place] # Seg Neutrophils % Seg Neutrophils # Potassium BUN Glucose POC Glucose 322 H 340 H Hemoglobin A1c 8.5 H Calcium 01/02/19 01/02/19 01/02/19 07:21 07:35 07:46 WBC RBC Hgb Hct 43.2 H Lymph % (Auto) 11.1 L [place] % (Auto) Lymph # 1.0 L [place] # Seg Neutrophils % 84.0 H Seg Neutrophils # 8.0 H Potassium BUN 21 H Glucose 333 H POC Glucose 345 H Hemoglobin A1c Calcium 01/02/19 01/02/19 01/02/19 11:25 16:14 16:40 WBC RBC Hgb Hct Lymph % (Auto) [place] % (Auto) Lymph # [place] # Seg Neutrophils % Seg Neutrophils # Potassium BUN Glucose POC Glucose 289 H 42 L 63 L Hemoglobin A1c Calcium 01/02/19 01/02/19 01/03/19 18:28 20:56 07:42 WBC RBC Hgb Hct Lymph % (Auto) [place] % (Auto) Lymph # [place] # Seg Neutrophils % Seg Neutrophils # Potassium BUN Glucose POC Glucose 44 L 239 H 279 H Hemoglobin A1c Calcium 01/03/19 01/03/19 12:56 21:17 WBC RBC Hgb Hct Lymph % (Auto) [place] % (Auto) Lymph # [place] # Seg Neutrophils % Seg Neutrophils # Potassium BUN Glucose POC Glucose 152 H 274 H Hemoglobin A1c Calcium
[2019-01-04] MEDS: BUDESONIDE 0.5 MG/2 ML NEBU IH SCH (08:08)
[2019-01-04] MEDS: ARFORMOTEROL 15 MCG/2 ML NEBU IH SCH (08:09)
[2019-01-04] MEDS: INSULIN LISPRO 100 UNIT/ML SUB-Q SCH ×2 (08:16→12:06)
[2019-01-04] MEDS: FAMOTIDINE 20 MG/2 ML INJ IV SCH (09:23)
[2019-01-04] MEDS: cefTRIAXone/NS 2 GM/100 ML 2 GM/100 ML BAG IV SCH (09:28)
[2019-01-04] MEDS: AZITHROMYCIN 500 MG in SODIUM CHLORIDE 0.9% 250ML 250 ML IV SCH (09:29)
[2019-01-04] MEDS: hydroCHLOROthiazide 25 MG TAB PO SCH (09:58)
[2019-01-04] MEDS: LOSARTAN 50 MG TAB PO SCH (09:59)
[2019-01-04 12:51] VITALS: BP 146/66
== END 2019-01-04 13:35 | disposition home or self-care (01) | DRG 189 ==
LOC: ED 11:36 → OBSVTOIN 15:30 → 3A 15:30
PROVIDERS: ADMIT Internal Medicine; ATTEND Hospitalist
DX: J96.01 Acute respiratory failure with hypoxia (principal); J45.901 Unspecified asthma with (acute) exacerbation; I10 Essential (primary) hypertension; E87.5 Hyperkalemia; F17.200 Nicotine dependence, unspecified, uncomplicated; E11.65 Type 2 diabetes mellitus with hyperglycemia; Z78.9 Other specified health status; Z71.6 Tobacco abuse counseling; Z88.5 Allergy status to narcotic agent; Z79.899 Other long term (current) drug therapy; Z82.49 Family history of ischemic heart disease and other diseases of the circulatory system
CPT/HCPCS: 36415; 71046; 80048; 80053; 82962; 83036; 83880; 84484; 85025; 93005; 93010; 94640; 94644; 96360; 99406; G0378; J0456; J0696; J1100; J1815; J2930; J3475; J7030; J7050

== ENCOUNTER 2019-01-10 14:37 | Emergency (ER) | payer BC ==
--- NOTE | 2019-01-10 15:10 | Event Note ---
ED Screening Note Date of service: 01/10/19 Time: 15:06 ED Screening Note: 63 y o female presents with intermittent cough productive states cough getting worse causing chestpain only with coughing pmh : asthma and HTN This initial assessment/diagnostic orders/clinical plan/treatment(s) is/are s ubject to change based on patients health status, clinical progression and re- assessment by fellow clinical providers in the ED. Further treatment and workup at subsequent clinical providers discretion. Patient/guardian urged not to elope from the ED as their condition may be serious if not clinically assessed and managed. Initial orders include: cxr
--- NOTE | 2019-01-10 18:14 | XRay Report ---
CHEST 2 VIEWS INDICATION / CLINICAL INFORMATION: cough. 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 HEART / MEDIASTINUM: No significant abnormality. LUNGS / PLEURA: No significant pulmonary or pleural abnormality. No pneumothorax. ADDITIONAL FINDINGS: No significant additional findings. IMPRESSION: 1. No acute findings. Signer Name: Wayne Hurst MD Signed: 01/10/2019 6:10 PM Workstation Name: [id number]
[2019-01-10] MEDS ORDERED: SODIUM CHLORIDE 0.9% 1000 ML 1,000 ML IV ONE (18:39)
--- NOTE | 2019-01-10 18:46 | Emergency Department Report ---
ED General Adult HPI - General Chief complaint: Dyspnea/Respdistress Stated complaint: SOB/HIGH GLUCOSE Time Seen by Provider: 01/10/19 18:22 Source: patient Mode of arrival: Wheelchair Limitations: No Limitations - History of Present Illness Initial comments: 63-year-old female with history of asthma presents to ED with elevated glucose. Patient was recently discharged from the hospital last week after a four-day admission for asthma exacerbation. Patient then developed onset diabetes possibly and due to steroids used for treatment of her respiratory symptoms. Patient was discharged on metformin 500 mg twice a day. She had a follow-up appointment with her primary care physician, Dr. Garrett, today. At the doctor's office, her Accu-Chek was in the 500s, so patient was instructed to come to the ER. Patient denies nausea or vomiting. She reports dizziness and fatigue. She reports continued shortness of breath with exertion. -: This afternoon Consistency: constant Worsens with: none Associated Symptoms: cough, malaise, shortness of breath. denies: chest pain, fever/chills, nausea/vomiting - Related Data Home Medications Medication Instructions Recorded Confirmed Last Taken Telmisartan/Hydrochlorothiazid 1 each PO QDAY 04/12/16 01/01/19 Unknown [Micardis Hct 80-25 mg] Previous Rx's Medication Instructions Recorded Last Taken Type Albuterol Sulfate [Albuterol 0.63% 0.63 mg IH TID PRN #1 box 12/29/18 Unknown Rx NEBS] ALPRAZolam [Xanax TAB] 0.25 mg PO BID PRN #12 tab 01/03/19 Unknown Rx Albuterol Sulfate [Proair 90 mcg IH Q6HR 30 Days [email or web address] 01/03/19 Unknown Rx Respiclick] Azithromycin [Zithromax TAB] 250 mg PO QDAY 5 Days #6 tablet 01/03/19 Unknown Rx predniSONE [Deltasone] 20 mg PO QDAY 9 Days #18 tab 01/03/19 Unknown Rx metFORMIN [Glucophage] 500 mg PO BID #30 tablet 01/04/19 Unknown Rx Allergies Allergy/AdvReac Type Severity Reaction Status Date / Time codeine Allergy Vomiting Verified 12/29/18 08:45 ED Review of Systems ROS: Stated complaint: SOB/HIGH GLUCOSE Other details as noted in HPI Comment: All other systems reviewed and negative Constitutional: denies: chills, fever Respiratory: cough, SOB with exertion Cardiovascular: denies: chest pain Gastrointestinal: denies: nausea, vomiting ED Past Medical Hx - Past Medical History Previous Medical History?: Yes Hx Hypertension: Yes Hx Congestive Heart Failure: No Hx Diabetes: No Hx Asthma: Yes Hx COPD: No - Surgical History Past Surgical History?: Yes Hx Pacemaker: Yes Additional Surgical History: , broken ankle - Social History Smoking Status: Former Smoker Substance Use Type: None - Medications Home Medications: Home Medications Medication Instructions Recorded Confirmed Last Taken Type Telmisartan/Hydrochlorothiazid 1 each PO QDAY 04/12/16 01/01/19 Unknown History [Micardis Hct 80-25 mg] Albuterol Sulfate [Albuterol 0.63% 0.63 mg IH TID PRN #1 box 12/29/18 01/01/19 Unknown Rx NEBS] ALPRAZolam [Xanax TAB] 0.25 mg PO BID PRN #12 tab 01/03/19 Unknown Rx Albuterol Sulfate [Proair 90 mcg IH Q6HR 30 Days aer.[email or web address] 01/03/19 Unknown Rx Respiclick] Azithromycin [Zithromax TAB] 250 mg PO QDAY 5 Days #6 tablet 01/03/19 Unknown Rx predniSONE [Deltasone] 20 mg PO QDAY 9 Days #18 tab 01/03/19 Unknown Rx metFORMIN [Glucophage] 500 mg PO BID #30 tablet 01/04/19 Unknown Rx ED Physical Exam - General Limitations: No Limitations General appearance: alert, in no apparent distress - Head Head exam: Present: atraumatic, normocephalic - Eye Eye exam: Present: normal appearance, PERRL, EOMI - ENT ENT exam: Present: mucous membranes moist - Neck Neck exam: Present: normal inspection - Respiratory Respiratory exam: Present: normal lung sounds bilaterally. Absent: respiratory distress - Cardiovascular Cardiovascular Exam: Present: regular rate, normal rhythm - GI/Abdominal GI/Abdominal exam: Present: soft. Absent: distended, tenderness - Extremities Exam Extremities exam: Present: normal inspection - Neurological Exam Neurological exam: Present: alert, oriented X3, CN II-XII intact. Absent: motor sensory deficit - Psychiatric Psychiatric exam: Present: normal affect, normal mood - Skin Skin exam: Present: warm, dry, intact, normal color ED Course Vital Signs 01/10/19 01/10/19 01/10/19 15:02 18:43 19:15 Temperature 98.2 F 98.7 F 98.1 F Pulse Rate 84 76 66 Respiratory 20 13 18 Rate Blood Pressure 132/84 Blood Pressure 133/77 146/77 [Right] O2 Sat by Pulse 95 96 100 Oximetry - Reevaluation(s) Reevaluation #1: 01/10/19 20:00 Went in to tell pt her glucose level and tell her that she would be getting insulin. Pt seems to have eloped. She is not in the room. All belongings are gone. ED Medical Decision Making - Lab Data Result diagrams: 01/10/19 18:43 01/10/19 18:43 Critical care attestation.: If time is entered above; I have spent that time in minutes in the direct care of this critically ill patient, excluding procedure time. ED Disposition Clinical Impression: Hyperglycemia Disposition: Z-07 ELOPED Is pt being admited?: No Condition: Stable Time of Disposition: 20:01
[2019-01-10 19:09] LABS: Basophils # (Auto) 0.1 K/mm3 (0.0-0.1); Basophils % (Auto) 0.6 % (0.0-1.8); Eosinophils % (Auto) 0.1 % (0.0-4.3); Hematocrit 45.8 % (30.3-42.9); Hemoglobin 15.5 gm/dl (10.1-14.3); Lymphocytes # (Auto) 2.2 K/mm3 (1.2-5.4); Lymphocytes % (Auto) 19.1 % (13.4-35.0); Mean Corpuscular HGB Conc 34 % (30-34); Mean Corpuscular Volume 90 fl (79-97); Monocytes # (Auto) 0.8 K/mm3 (0.0-0.8); Platelet Count 283 K/mm3 (140-440); Red Cell Distribution Width 13.1 % (13.2-15.2)
[2019-01-10 19:21] LABS: BUN/Creatinine Ratio 36; Blood Urea Nitrogen 40 mg/dL (7-17); Calcium 11.5 mg/dL (8.4-10.2); Hemolysis Index 6
[2019-01-10 19:37] VITALS: BP 146/77
== END 2019-01-10 20:00 | disposition left against medical advice (07) ==
LOC: ED 14:37
DX: R73.9 Hyperglycemia, unspecified (principal); R06.02 Shortness of breath; R42 Dizziness and giddiness; I10 Essential (primary) hypertension; J45.909 Unspecified asthma, uncomplicated; Z95.0 Presence of cardiac pacemaker; Z87.891 Personal history of nicotine dependence; Z79.899 Other long term (current) drug therapy; Z88.5 Allergy status to narcotic agent
CPT/HCPCS: 36415; 71046; 80048; 85025; 96360; 99284; J7030